=== PATIENT | female | born 1975 | race American Indian/Alaskan Native ===

== ENCOUNTER 2016-06-26 11:38 | Emergency (ER) | payer SELFPAY ==
--- NOTE | 2016-06-26 12:59 | XRay Report ---
CHEST TWO VIEWS: 06/26/16 11:38:00 CLINICAL: Productive cough. COMPARISON: None FINDINGS: Normal heart and pulmonary vasculature. The lungs are normally expanded and clear.Mild degenerative changes in the spine. IMPRESSION: No acute cardiopulmonary process.
[2016-06-26] MEDS ORDERED: DUONEB 0.5 MG-3 MG/3 ML SOLN IH ONE (15:31)
[2016-06-26] MEDS ORDERED: DELTASONE PO ONE (15:31)
[2016-06-26 17:05] VITALS: BP 153/95
--- NOTE | 2016-06-26 19:44 | Emergency Department Report ---
Entered by CORDELIA DAMON, acting as scribe for ZITA AGUILAR PA. - General Chief Complaint: Upper Respiratory Infection Stated Complaint: CHEST PAIN / BODY ACHE / FEVER /CHILLS Time Seen by Provider: 06/26/16 14:54 Source: patient Mode of arrival: Ambulatory Limitations: No Limitations - History of Present Illness Initial Comments: 41 year old female presents to the ED for evaluation of persistent dry cough and associated wheezing and body aches for 10 days. She also reports chest pain with cough, chills, audible wheezing and subjective fever this morning. Treatments prior to arrival include Tylenol, last dose at 10:00 this morning. Denies abdominal pain, nausea, vomiting. Endorses cigarette use. MD Complaint: fever, cough Onset/Timin -: days(s) Severity: moderate Consistency: constant Improves With: other (Tylenol) Worsens With: other (cold environments (works in "cold storage")) Associated Symptoms: fever, chills, myalgias, cough, chest pain (with cough), hoarseness. denies: sore throat, shortness of breath, abdominal pain, nausea, vomiting, diarrhea, rash Treatments Prior to Arrival: Acetaminophen (last dose at 10:00 this morning) - Related Data Previous Rx's Medication Instructions Recorded Last Taken Type Ferrous Sulfate [Feosol 325 MG tab] 325 mg PO TID #90 tablet 11/19/14 Unknown Rx HYDROcodone/APAP 5-325 [[place] 1 each PO Q6HR PRN #14 tablet 11/19/14 Unknown Rx 5-325 mg TAB] Pantoprazole [Protonix] 40 mg PO QDAY #30 tablet 11/19/14 Unknown Rx Sucralfate [Carafate] 1 gm PO Q6HR 30 Days 11/19/14 Unknown Rx Cephalexin [Keflex] 500 mg PO Q12HR #10 cap 02/03/16 Unknown Rx Ibuprofen [Motrin] 400 mg PO Q8H PRN #15 tablet 02/03/16 Unknown Rx Neomy/Baci/Polymyx Oint [Triple 15 gm TP BID #1 tube 02/03/16 Unknown Rx Antibiotic] traMADol [Ultram] 50 mg PO Q6HR PRN #20 tablet 02/08/16 Unknown Rx Albuterol Sulfate [Ventolin HFA] 2 puff IH Q4H PRN #1 hfa.aer.ad 04/15/17 Unknown Rx Azithromycin [Zithromax Z-AYO] 250 mg PO DAILY #6 tab 06/26/16 Unknown Rx Cetirizine HCl [ZyrTEC] 10 mg PO QDAY #14 capsule 06/26/16 Unknown Rx Fluticasone [Flonase] 1 spray NS QDAY #1 bottle 06/26/16 Unknown Rx guaiFENesin/CODEINE [Robitussin AC] 10 ml PO QHS PRN #70 oral.liqd 06/26/16 Unknown Rx Allergies Allergy/AdvReac Type Severity Reaction Status Date / Time No Known Allergies Allergy Verified 02/08/16 19:44 ED Review of Systems Comment: All other systems reviewed and negative Constitutional: chills, fever Eyes: denies: eye discharge ENT: congestion (chest congestion), other (horseness). denies: ear pain, throat pain, dental pain Respiratory: cough, wheezing. denies: shortness of breath, SOB with exertion, SOB at rest, stridor Cardiovascular: chest pain (with cough) Gastrointestinal: denies: abdominal pain, nausea, vomiting, diarrhea Musculoskeletal: myalgia. denies: back pain, arthralgia Skin: denies: rash Neurological: denies: headache, weakness, abnormal gait, vertigo ED Past Medical Hx - Past Medical History Previous Medical History?: Yes Additional medical history: Anemia. FIBROID TUMOR - Surgical History Past Surgical History?: Yes Hx Cholecystectomy: Yes - Family History Family history: no significant - Social History Smoking Status: Current Every Day Smoker Substance Use Type: Alcohol, Non Opiate Pain - Medications Home Medications: Home Medications Medication Instructions Recorded Confirmed Last Taken Type Ferrous Sulfate [Feosol 325 MG tab] 325 mg PO TID #90 tablet 11/19/14 Unknown Rx HYDROcodone/APAP 5-325 [[place] 1 each PO Q6HR PRN #14 tablet 11/19/14 Unknown Rx 5-325 mg TAB] Pantoprazole [Protonix] 40 mg PO QDAY #30 tablet 11/19/14 Unknown Rx Sucralfate [Carafate] 1 gm PO Q6HR 30 Days 11/19/14 Unknown Rx Cephalexin [Keflex] 500 mg PO Q12HR #10 cap 02/03/16 Unknown Rx Ibuprofen [Motrin] 400 mg PO Q8H PRN #15 tablet 02/03/16 Unknown Rx Neomy/Baci/Polymyx Oint [Triple 15 gm TP BID #1 tube 02/03/16 Unknown Rx Antibiotic] traMADol [Ultram] 50 mg PO Q6HR PRN #20 tablet 02/08/16 Unknown Rx Albuterol Sulfate [Ventolin HFA] 2 puff IH Q4H PRN #1 hfa.aer.ad 06/26/16 Unknown Rx Azithromycin [Zithromax Z-AYO] 250 mg PO DAILY #6 tab 06/26/16 Unknown Rx Cetirizine HCl [ZyrTEC] 10 mg PO QDAY #14 capsule 06/26/16 Unknown Rx Fluticasone [Flonase] 1 spray NS QDAY #1 bottle 06/26/16 Unknown Rx guaiFENesin/CODEINE [Robitussin AC] 10 ml PO QHS PRN #70 oral.liqd 06/26/16 Unknown Rx ED Physical Exam - General Limitations: No Limitations General appearance: alert, in no apparent distress - Head Head exam: Present: atraumatic, normocephalic - Eye Eye exam: Present: normal appearance, PERRL, EOMI. Absent: scleral icterus, conjunctival injection Pupils: Present: normal accommodation - ENT ENT exam: Present: normal orophraynx, mucous membranes moist, normal external ear exam (bilateral TMs congested without erythema), other (bilateral turbinates are swollen and erythematous. Positive frontal sinuses tender to palpate) - Expanded ENT Exam Expanded TM/Canal exam: Effusion: Right TM, Left TM Mouth exam: Present: normal external inspection. Absent: drooling Throat exam: Positive: normal inspection. Negative: tonsillar erythema, tonsillomegaly, tonsillar exudate, R peritonsillar mass, L peritonsillar mass - Neck Neck exam: Present: normal inspection. Absent: tenderness, meningismus, full ROM, lymphadenopathy, thyromegaly - Expanded Neck Exam Expanded Neck exam: Absent: tenderness, midline deformity, anterior neck swelling, tracheal deviation - Respiratory Respiratory exam: Present: wheezes (scattered in upper lung [place] bilaterally) . Absent: respiratory distress, rales, rhonchi, stridor, chest wall tenderness , accessory muscle use, decreased breath sounds - Cardiovascular Cardiovascular Exam: Present: regular rate, normal rhythm, normal heart sounds. Absent: systolic murmur, diastolic murmur, rubs, gallop - GI/Abdominal GI/Abdominal exam: Present: soft, normal bowel sounds. Absent: distended, tenderness, guarding, rebound, rigid - Extremities Exam Extremities exam: Present: normal inspection, full ROM, normal capillary refill. Absent: tenderness, pedal edema, other (clubbing, cyanosis, or edema) - Back Exam Back exam: Present: normal inspection, full ROM - Neurological Exam Neurological exam: Present: alert, oriented X3 - Psychiatric Psychiatric exam: Present: normal affect, normal mood - Skin Skin exam: Present: warm, dry, intact, normal color. Absent: rash, cyanosis ED Course Vital Signs 06/26/16 06/26/16 06/26/16 11:42 16:28 16:40 Temperature 98.1 F Pulse Rate 100 H Pulse Rate [ 102 H 103 H Bilateral Upper Lobe] Respiratory 20 Rate Respiratory 18 18 Rate [Bilateral Upper Lobe] Blood Pressure 151/93 Blood Pressure [Left] O2 Sat by Pulse 100 Oximetry 06/26/16 06/26/16 16:49 17:04 Temperature 98.2 F 97.7 F Pulse Rate 97 H 95 H Pulse Rate [ Bilateral Upper Lobe] Respiratory 18 16 Rate Respiratory Rate [Bilateral Upper Lobe] Blood Pressure Blood Pressure 153/95 [Left] O2 Sat by Pulse 100 100 Oximetry Vital Signs 06/26/16 06/26/16 06/26/16 11:42 16:28 16:40 Temperature 98.1 F Pulse Rate 100 H Pulse Rate [ 102 H 103 H Bilateral Upper Lobe] Respiratory 20 Rate Respiratory 18 18 Rate [Bilateral Upper Lobe] Blood Pressure 151/93 O2 Sat by Pulse 100 Oximetry 06/26/16 16:49 Temperature 98.2 F Pulse Rate 97 H Pulse Rate [ Bilateral Upper Lobe] Respiratory 18 Rate Respiratory Rate [Bilateral Upper Lobe] Blood Pressure O2 Sat by Pulse 100 Oximetry - Reevaluation(s) Reevaluation #1: 06/26/16 16:50 Patient received DuoNeb nebulizer treatment times one in emergency room along with Deltasone 60 mg by mouth. ED Medical Decision Making - Radiology Data Radiology results: report reviewed Chest x-ray revealed no acute cardiopulmonary processes - Medical Decision Making ED course: ED Disposition Clinical Impression: Cough Acute frontal sinusitis Qualifiers: Recurrence: recurrent Qualified Code(s): J01.11 - Acute recurrent frontal sinusitis Acute bronchitis Qualifiers: Bronchitis organism: unspecified organism Qualified Code(s): J20.9 - Acute bronchitis, unspecified Disposition: DISCHARGED TO HOME OR SELFCARE Is pt being admited?: No Does the pt Need Aspirin: No Condition: Stable Instructions: Sinusitis (ED), Acute Bronchitis (ED), Acute Cough (ED) Additional Instructions: Please flush nostrils out with saline nasal wash Take antibiotic as prescribed Take cough medicine at bedtime Prescriptions: guaiFENesin/CODEINE [Robitussin AC] 10 ml PO QHS PRN #70 oral.liqd PRN Reason: Cough Albuterol Sulfate [Ventolin HFA] 2 puff IH Q4H PRN #1 hfa.aer.ad PRN Reason: Cough and wheezing Azithromycin [Zithromax Z-AYO] 250 mg PO DAILY #6 tab Cetirizine HCl [ZyrTEC] 10 mg PO QDAY #14 capsule Fluticasone [Flonase] 1 spray NS QDAY #1 bottle Referrals: PRIMARY CARE, [Primary Care Provider] - 3-5 Days Forms: Accompanied Note, Work/School Release Form(ED) This documentation as recorded by the NELSON laughlin REBEKAH,accurately reflects the service I personally performed and the decisions made by ,ZITA AGUILAR PA.
== END 2016-06-26 17:07 | disposition home or self-care (01) ==
LOC: ED 11:38
DX: J20.9 Acute bronchitis, unspecified (principal); J01.11 Acute recurrent frontal sinusitis; F17.200 Nicotine dependence, unspecified, uncomplicated; Z90.49 Acquired absence of other specified parts of digestive tract
CPT/HCPCS: 71020; 94640; 99283; J7512

== ENCOUNTER 2017-02-05 14:07 | Inpatient (IN) | payer OTHER ==
[2017-02-05 16:08] LABS: Basophils % (Auto) 0.5 % (0.0-1.8); Eosinophils % (Auto) 1.3 % (0.0-4.3); Hemoglobin 6.2 gm/dl (10.1-14.3); Mean Corpuscular HGB Conc 30 % (30-34); Platelet Count 392 K/mm3 (140-440); Red Blood Count 3.42 M/mm3 (3.65-5.03); White Blood Count 5.6 K/mm3 (4.5-11.0)
[2017-02-05 16:16] LABS: Mean Corpuscular Hemoglobin 18 pg (28-32); Mean Corpuscular Volume 62 fl (79-97); Red Cell Distribution Width 23.1 % (13.2-15.2)
[2017-02-05 16:26] LABS: Alanine Aminotransferase 16 units/L (7-56); Albumin 4.4 g/dL (3.9-5); Albumin/Globulin Ratio 1.2 %; Alkaline Phosphatase 69 units/L (35-129); Anion Gap 18 mmol/L; BUN/Creatinine Ratio 8; Bilirubin,Total < 0.20 mg/dL (0.1-1.2); Blood Urea Nitrogen 5 mg/dL (7-17); Calcium 9.4 mg/dL (8.4-10.2); Carbon Dioxide 25 mmol/L (22-30); Chloride 100.4 mmol/L (98-107); Glucose 101 mg/dL (65-100); Lipase 46 units/L (13-60); Potassium 4.1 mmol/L (3.6-5.0); Sodium 139 mmol/L (137-145)
[2017-02-05 17:48] LABS: Bilirubin,Urine NEG (Negative); Blood,Urine MOD (Negative); Ketones,Urine NEG (Negative); Leukocyte Esterase,Urine NEG (Negative); Mucus,Urine FEW /HPF; Nitrite,Urine NEG (Negative); Protein,Urine <15 mg/dL mg/dL (Negative); Urobilinogen,Urine < 2.0 mg/dL (<2.0); WBC,Urine < 1.0 /HPF (0.0-6.0)
--- NOTE | 2017-02-05 22:35 | Cat Scan Report ---
FINAL REPORT EXAM: CT ABDOMEN PELVIS WO CON HISTORY: left flank pain,hematuria TECHNIQUE: Unenhanced stone protocol CT of the abdomen and pelvis at 2.5 millimeter axial increments. Coronal and sagittal reconstruction was also performed. PRIORS: None. FINDINGS: There is no evidence for renal calculi or hydronephrosis. No evidence for ureteral or bladder calculus is seen. No evidence for renal or bladder mass is noted. Otherwise, within the limits of a noncontrast exam, the liver, spleen, pancreas, and adrenal glands are unremarkable. Gallbladder has been surgically removed. No evidence for retroperitoneal or pelvic lymphadenopathy is seen. The bowel loops have normal caliber. No fluid collection, inflammatory change, or free air is seen within the abdomen or pelvis. The appendix is normal. Within the pelvis, the uterus is markedly enlarged and lobulated in contour suggesting underlying fibroid formation. The uterus extends cranially to the level of the umbilicus and measures at least 12.4 x 10.1 x 15.5 cm. Along the left side of the uterine fundus, there is a 3.6 x 4.0 cm focus (axial image 119). This may represent an enlarged left ovary versus an exophytic fibroid. No other entity is identified to suggest the left ovary elsewhere. Pelvic ultrasound is recommended. Images through the upper abdomen include the lung bases which are expanded and clear. Bony structures show no focal abnormalities. IMPRESSION: 1. No evidence for renal calculi or renal obstruction. 2. Markedly enlarged uterus extending to the level of the umbilicus. Findings are consistent with underlying fibroids 3.. Focus extending off the left side of the uterine fundus. I am uncertain whether this represents an enlarged left ovary or an exophytic fibroid. Pelvic ultrasound is warranted. 4. Cholecystectomy.
--- NOTE | 2017-02-05 22:40 | Emergency Department Report ---
ED Abdominal Pain HPI - General Chief Complaint: Abdominal Pain Stated Complaint: ABD PAIN/BACK PAIN Time Seen by Provider: 02/05/17 22:34 Source: patient Mode of arrival: Ambulatory Limitations: No Limitations - History of Present Illness Initial Comments: 41 yo female with increasing pain in her abdomen. She has a h/o uterine fibroid and was told by her doctor that she needed a hysterectomy but she refused. She is here with c/o increased p[ain and abnormal menstrual flow and wants a hysterectomy MD Complaint: abdominal pain -: year(s) (2yrs) Location: diffuse Radiation: none Migration to: no migration Severity scale (0 -10): 3 Quality: cramping, aching Consistency: intermittent Improves With: nothing Worsens With: nothing Associated Symptoms: other (heavy menstrual cycle) - Related Data Previous Rx's Medication Instructions Recorded Last Taken Type Ferrous Sulfate [Feosol 325 MG tab] 325 mg PO TID #90 tablet 11/19/14 Unknown Rx HYDROcodone/APAP 5-325 [[place] 1 each PO Q6HR PRN #14 tablet 11/19/14 Unknown Rx 5-325 mg TAB] Pantoprazole [Protonix] 40 mg PO QDAY #30 tablet 11/19/14 Unknown Rx Sucralfate [Carafate] 1 gm PO Q6HR 30 Days oral.liqd 11/19/14 Unknown Rx Cephalexin [Keflex] 500 mg PO Q12HR #10 cap 02/03/16 Unknown Rx Ibuprofen [Motrin] 400 mg PO Q8H PRN #15 tablet 02/03/16 Unknown Rx Neomy/Baci/Polymyx Oint [Triple 15 gm TP BID #1 tube 02/03/16 Unknown Rx Antibiotic] traMADol [Ultram] 50 mg PO Q6HR PRN #20 tablet 02/08/16 Unknown Rx Albuterol Sulfate [Ventolin HFA] 2 puff IH Q4H PRN #1 hfa.aer.ad 06/26/16 Unknown Rx Azithromycin [Zithromax Z-AYO] 250 mg PO DAILY #6 tab 06/26/16 Unknown Rx Cetirizine HCl [ZyrTEC] 10 mg PO QDAY #14 capsule 06/26/16 Unknown Rx Fluticasone [Flonase] 1 spray NS QDAY #1 bottle 06/26/16 Unknown Rx guaiFENesin/CODEINE [Robitussin AC] 10 ml PO QHS PRN #70 oral.liqd 06/26/16 Unknown Rx Allergies Allergy/AdvReac Type Severity Reaction Status Date / Time No Known Allergies Allergy Verified 02/08/16 19:44 ED Review of Systems ROS: Stated complaint: ABD PAIN/BACK PAIN Other details as noted in HPI Constitutional: denies: chills, fever Eyes: denies: eye pain, eye discharge, vision change ENT: denies: ear pain, throat pain Respiratory: denies: cough, shortness of breath, wheezing Cardiovascular: denies: chest pain, palpitations Endocrine: no symptoms reported Gastrointestinal: abdominal pain. denies: nausea, diarrhea Genitourinary: abnormal menses. denies: urgency, dysuria, discharge Musculoskeletal: denies: back pain, joint swelling, arthralgia Skin: denies: rash, lesions Neurological: denies: headache, weakness, paresthesias Psychiatric: denies: anxiety, depression Hematological/Lymphatic: denies: easy bleeding, easy bruising ED Past Medical Hx - Past Medical History Additional medical history: Anemia. FIBROID TUMOR - Surgical History Hx Cholecystectomy: Yes - Social History Smoking Status: Current Every Day Smoker Substance Use Type: None - Medications Home Medications: Home Medications Medication Instructions Recorded Confirmed Last Taken Type Ferrous Sulfate [Feosol 325 MG tab] 325 mg PO TID #90 tablet 11/19/14 Unknown Rx HYDROcodone/APAP 5-325 [[place] 1 each PO Q6HR PRN #14 tablet 11/19/14 Unknown Rx 5-325 mg TAB] Pantoprazole [Protonix] 40 mg PO QDAY #30 tablet 11/19/14 Unknown Rx Sucralfate [Carafate] 1 gm PO Q6HR 30 Days oral.liqd 11/19/14 Unknown Rx Cephalexin [Keflex] 500 mg PO Q12HR #10 cap 02/03/16 Unknown Rx Ibuprofen [Motrin] 400 mg PO Q8H PRN #15 tablet 02/03/16 Unknown Rx Neomy/Baci/Polymyx Oint [Triple 15 gm TP BID #1 tube 02/03/16 Unknown Rx Antibiotic] traMADol [Ultram] 50 mg PO Q6HR PRN #20 tablet 02/08/16 Unknown Rx Albuterol Sulfate [Ventolin HFA] 2 puff IH Q4H PRN #1 hfa.aer.ad 06/26/16 Unknown Rx Azithromycin [Zithromax Z-AYO] 250 mg PO DAILY #6 tab 06/26/16 Unknown Rx Cetirizine HCl [ZyrTEC] 10 mg PO QDAY #14 capsule 06/26/16 Unknown Rx Fluticasone [Flonase] 1 spray NS QDAY #1 bottle 06/26/16 Unknown Rx guaiFENesin/CODEINE [Robitussin AC] 10 ml PO QHS PRN #70 oral.liqd 06/26/16 Unknown Rx ED Physical Exam - General Limitations: No Limitations General appearance: alert, in no apparent distress - Head Head exam: Present: atraumatic, normocephalic - Eye Eye exam: Present: normal appearance, EOMI - ENT ENT exam: Present: mucous membranes moist - Neck Neck exam: Present: normal inspection - Respiratory Respiratory exam: Present: normal lung sounds bilaterally. Absent: respiratory distress, wheezes, rales - Cardiovascular Cardiovascular Exam: Present: regular rate, normal rhythm, normal heart sounds. Absent: systolic murmur, diastolic murmur, rubs, gallop - GI/Abdominal GI/Abdominal exam: Present: soft, tenderness (diffuse especially epigstric, mass felt just below the epigastrium at the umbilicus), normal bowel sounds. Absent: guarding, rebound - Rectal Rectal exam: Present: deferred - Extremities Exam Extremities exam: Present: normal inspection, full ROM - Back Exam Back exam: Present: normal inspection, full ROM - Neurological Exam Neurological exam: Present: alert, oriented X3, CN II-XII intact - Psychiatric Psychiatric exam: Present: normal affect, normal mood - Skin Skin exam: Present: warm, dry, intact, normal color. Absent: rash ED Course Vital Signs 02/05/17 02/05/17 02/05/17 15:16 21:25 22:29 Temperature 98.4 F 98.5 F 98.8 F Pulse Rate 89 88 98 H Respiratory 18 18 18 Rate Blood Pressure 142/89 150/95 Blood Pressure 142/90 [Left] O2 Sat by Pulse 100 100 98 Oximetry 02/06/17 02:40 Temperature Pulse Rate Respiratory 18 Rate Blood Pressure Blood Pressure [Left] O2 Sat by Pulse Oximetry ED Medical Decision Making - Lab Data Result diagrams: 02/05/17 15:48 02/05/17 15:48 - Radiology Data Radiology results: report reviewed (CT abd/pelvis:fibroid uterus, left ovarian abnormality ?fibroid US pelvic/abd: multiple uterine fibroids,fibroid in area of left ovary) Critical care attestation.: If time is entered above; I have spent that time in minutes in the direct care of this critically ill patient, excluding procedure time. ED Disposition Clinical Impression: Abdominal pain Qualifiers: Abdominal location: unspecified location Qualified Code(s): R10.9 - Unspecified abdominal pain Uterine fibroid Qualifiers: Uterine leiomyoma location: intramural, submucous, and subserous Qualified Code (s): D25.1 - Intramural leiomyoma of uterus; D25.0 - Submucous leiomyoma of uterus; D25.0 - Submucous leiomyoma of uterus; D25.2 - Subserosal leiomyoma of uterus; D25.2 - Subserosal leiomyoma of uterus Menorrhagia Qualifiers: Menorrahagia type: with irregular cycle Qualified Code(s): N92.1 - Excessive and frequent menstruation with irregular cycle Disposition: -09 OP ADMIT IP TO THIS HOSP Is pt being admited?: Yes Does the pt Need Aspirin: No Condition: Stable Instructions: Abdominal Pain (ED) Referrals: PRIMARY CARE, [Primary Care Provider] - 3-5 Days Time of Disposition: 03:06 (case reviewed with dr marc mendoza and she freda admit ehr to the hospital)
--- NOTE | 2017-02-06 00:47 | Ultrasound Report ---
FINAL REPORT EXAM: US PELVIC COMPLETE HISTORY: uterine fibroid? TECHNIQUE: Routine transabdominal imaging was obtained of the pelvis. The CT scan of the pelvis dated 02/05/2017 was reviewed for correlation. FINDINGS: The uterus is diffusely enlarged measuring 18.2 cm x 9.3 cm x 11.7 cm having a very heterogeneous myometrium. There are multiple fibroids in the body uterus measuring up to 6.5 cm in diameter in the lower body of uterus. The left adnexal mass seen on the CT scan represents a fibroid. The endometrium is not adequately seen for evaluation. Free fluid is not seen. The ovaries are normal in size contour and echotexture. The right ovary measures 3.7 cm x 2.4 cm x 2.7 cm. The left ovary measures 4 cm x 3.3 cm x 3.6 cm. IMPRESSION: Diffuse enlargement of the uterus containing multiple fibroids as described. The left adnexal mass seen on the CT scan represents 1 of those fibroids. Normal ovaries. No free fluid identified.
--- NOTE | 2017-02-06 00:49 | Ultrasound Report ---
FINAL REPORT EXAM: US TRANSVAGINAL HISTORY: uterine fibroid? TECHNIQUE: Transvaginal imaging was obtained of the pelvis. Correlation with the CT scan of the abdomen and pelvis dated 02/05/2017 was reviewed. FINDINGS: The uterus is diffusely enlarged measuring 18.2 cm x 9.3 cm x 11.7 cm and has a diffusely heterogeneous myometrium compatible with multiple fibroids. The fibroids measure up to 6.5 cm in diameter. One of these fibroids accounts for the left adnexal soft tissue fullness. The endometrium was not measured. Free fluid is not seen. The ovaries are normal size contour and echotexture. The right ovary measures 3.7 cm x 2.4 cm x 2.7 cm. The left ovary measures 4.0 cm x 3.3 cm x 3.6 cm. There are benign follicles in both ovaries. Free fluid is not seen. IMPRESSION: Enlarged fibroid uterus as described. Normal appearing ovaries. No evidence of free fluid.
[2017-02-06] MEDS ORDERED: PERCOCET 5/325 ONE (02:38)
[2017-02-06] MEDS ORDERED: PERCOCET 5/325 PO ONE (02:39)
--- NOTE | 2017-02-06 07:22 | Progress Note ---
Hospitalist Physical - Constitutional Vitals: Temp Pulse Resp BP Pulse Ox 98.8 F 98 H 18 142/90 98 02/05/17 22:29 02/05/17 22:29 02/06/17 02:40 02/05/17 22:29 02/05/17 22:29 Results - Labs CBC & Chem 7: 02/05/17 15:48 02/05/17 15:48 Labs: Laboratory Last Values WBC 5.6 K/mm3 (4.5-11.0) 02/05/17 15:48 RBC 3.42 M/mm3 (3.65-5.03) L 02/05/17 15:48 Hgb 6.2 gm/dl (10.1-14.3) L 02/05/17 15:48 Hct 21.0 % (30.3-42.9) L 02/05/17 15:48 MCV 62 fl (79-97) L 02/05/17 15:48 MCH 18 pg (28-32) L 02/05/17 15:48 MCHC 30 % (30-34) 02/05/17 15:48 RDW 23.1 % (13.2-15.2) H 02/05/17 15:48 Plt Count 392 K/mm3 (140-440) 02/05/17 15:48 Lymph % (Auto) 28.6 % (13.4-35.0) 02/05/17 15:48 [place] % (Auto) 8.8 % (0.0-7.3) H 02/05/17 15:48 Eos % (Auto) 1.3 % (0.0-4.3) 02/05/17 15:48 Baso % (Auto) 0.5 % (0.0-1.8) 02/05/17 15:48 Lymph # 1.6 K/mm3 (1.2-5.4) 02/05/17 15:48 [place] # 0.5 K/mm3 (0.0-0.8) 02/05/17 15:48 Eos # 0.1 K/mm3 (0.0-0.4) 02/05/17 15:48 Baso # 0.0 K/mm3 (0.0-0.1) 02/05/17 15:48 Seg Neutrophils % 60.8 % (40.0-70.0) 02/05/17 15:48 Seg Neutrophils # 3.4 K/mm3 (1.8-7.7) 02/05/17 15:48 Sodium 139 mmol/L (137-145) 02/05/17 15:48 Potassium 4.1 mmol/L (3.6-5.0) 02/05/17 15:48 Chloride 100.4 mmol/L (98-107) 02/05/17 15:48 Carbon Dioxide 25 mmol/L (22-30) 02/05/17 15:48 Anion Gap 18 mmol/L 02/05/17 15:48 BUN 5 mg/dL (7-17) L 02/05/17 15:48 Creatinine 0.6 mg/dL (0.7-1.2) L 02/05/17 15:48 Estimated GFR > 60 ml/min 02/05/17 15:48 BUN/Creatinine Ratio 8 % 02/05/17 15:48 Glucose 101 mg/dL (65-100) H 02/05/17 15:48 Calcium 9.4 mg/dL (8.4-10.2) 02/05/17 15:48 Total Bilirubin < 0.20 mg/dL (0.1-1.2) 02/05/17 15:48 AST 19 units/L (5-40) 02/05/17 15:48 ALT 16 units/L (7-56) 02/05/17 15:48 Alkaline Phosphatase 69 units/L (35-129) 02/05/17 15:48 Total Protein 8.0 g/dL (6.3-8.2) 02/05/17 15:48 Albumin 4.4 g/dL (3.9-5) 02/05/17 15:48 Albumin/Globulin Ratio 1.2 % 02/05/17 15:48 Lipase 46 units/L (13-60) 02/05/17 15:48 HCG, Qual Negative (Negative) 02/05/17 23:00 Urine Color Yellow (Yellow) 02/05/17 16:55 Urine Turbidity Clear (Clear) 02/05/17 16:55 Urine pH 5.0 (5.0-7.0) 02/05/17 16:55 Ur Specific [place] 1.017 (1.003-1.030) 02/05/17 16:55 Urine Protein <15 mg/dl mg/dL (Negative) 02/05/17 16:55 Urine Glucose (UA) Neg mg/dL (Negative) 02/05/17 16:55 Urine Ketones Neg mg/dL (Negative) 02/05/17 16:55 Urine Blood Mod (Negative) 02/05/17 16:55 Urine Nitrite Neg (Negative) 02/05/17 16:55 Urine Bilirubin Neg (Negative) 02/05/17 16:55 Urine Urobilinogen < 2.0 mg/dL (<2.0) 02/05/17 16:55 Ur Leukocyte Esterase Neg (Negative) 02/05/17 16:55 Urine WBC (Auto) < 1.0 /HPF (0.0-6.0) 02/05/17 16:55 Urine RBC (Auto) 25.0 /HPF (0.0-6.0) 02/05/17 16:55 U Epithel Cells (Auto) 1.0 /HPF (0-13.0) 02/05/17 16:55 Urine Mucus Few /HPF 02/05/17 16:55 Blood Type AB POSITIVE 02/05/17 17:16 Antibody Screen Negative 02/05/17 17:16
[2017-02-06] MEDS ORDERED: NACL 0.9% 500 ML 500 ML IV ONE ×2 (07:23→11:00)
--- NOTE | 2017-02-06 07:23 | History and Physical Report ---
History of Present Illness Date of examination: 02/06/17 Date of admission: 02/06/17 Chief complaint: Abdominal pain and abnormal vaginal bleeding History of present illness: 41-year-old obese female patient with significant past medical history of menorrhagia and fibroid uterus, evaluated by CASE MANAGEMENT ASSISTANT who recommended hysterectomy which patient refused, presented to the emergency room with abdominal pain and abnormal vaginal bleedingPatient was initially evaluated noted to be severely anemic with hemoglobin of 6.2 Denies nausea vomiting , denies chest pain or shortness of breath Past History Past Medical History: anemia, other (fibroid uterus) Past Surgical History: cholecystectomy Social history: lives with family, smoking (on pack per day for many years), full code. denies: alcohol abuse, prescription drug abuse Family history: hypertension Medications and Allergies Allergies Allergy/AdvReac Type Severity Reaction Status Date / Time No Known Allergies Allergy Verified 02/08/16 19:44 Home Medications Medication Instructions Recorded Confirmed Last Taken Type Ferrous Sulfate [Feosol 325 MG tab] 325 mg PO TID #90 tablet 11/19/14 Unknown Rx HYDROcodone/APAP 5-325 [[place] 1 each PO Q6HR PRN #14 tablet 11/19/14 Unknown Rx 5-325 mg TAB] Pantoprazole [Protonix] 40 mg PO QDAY #30 tablet 11/19/14 Unknown Rx Sucralfate [Carafate] 1 gm PO Q6HR 30 Days oral.liqd 11/19/14 Unknown Rx Cephalexin [Keflex] 500 mg PO Q12HR #10 cap 02/03/16 Unknown Rx Ibuprofen [Motrin] 400 mg PO Q8H PRN #15 tablet 02/03/16 Unknown Rx Neomy/Baci/Polymyx Oint [Triple 15 gm TP BID #1 tube 02/03/16 Unknown Rx Antibiotic] traMADol [Ultram] 50 mg PO Q6HR PRN #20 tablet 02/08/16 Unknown Rx Albuterol Sulfate [Ventolin HFA] 2 puff IH Q4H PRN #1 hfa.aer.ad 06/26/16 Unknown Rx Azithromycin [Zithromax Z-AYO] 250 mg PO DAILY #6 tab 06/26/16 Unknown Rx Cetirizine HCl [ZyrTEC] 10 mg PO QDAY #14 capsule 06/26/16 Unknown Rx Fluticasone [Flonase] 1 spray NS QDAY #1 bottle 06/26/16 Unknown Rx guaiFENesin/CODEINE [Robitussin AC] 10 ml PO QHS PRN #70 oral.liqd 06/26/16 Unknown Rx Review of Systems Constitutional: fatigue, weakness, no weight loss, no weight gain Ears, nose, mouth and throat: no nasal congestion, no nasal discharge Cardiovascular: decreased exercise tolerance, no chest pain, no orthopnea, no palpitations Respiratory: no cough with sputum, no shortness of breath Gastrointestinal: no abdominal pain, no nausea, no vomiting Genitourinary Female: menorrhagia Musculoskeletal: no myalgias, no arthritis Integumentary: no rash, no lesions Neurological: no weakness, no numbness, no tingling, no seizures Psychiatric: no anxiety, no depression Endocrine: no cold intolerance, no heat intolerance, no polydipsia, no polyuria Hematologic/Lymphatic: no easy bruising, no easy bleeding Allergic/Immunologic: no urticaria, no allergic rhinitis Exam - Constitutional Vitals: Temp Pulse Resp BP Pulse Ox 98.8 F 98 H 18 142/90 98 02/05/17 22:29 02/05/17 22:29 02/06/17 02:40 02/05/17 22:29 02/05/17 22:29 General appearance: Present: no acute distress, other (pallor) - EENT Eyes: Present: PERRL, EOM intact - Neck Neck: Present: supple, normal ROM - Respiratory Respiratory effort: normal Respiratory: negative: rales, rhonchi, wheezing - Cardiovascular Rhythm: regular Heart Sounds: Present: S1 & S2 - Extremities Extremities: no ischemia, No edema - Abdominal General gastrointestinal: Present: soft, non-tender, non-distended, normal bowel sounds - Integumentary Integumentary: Present: clear, pale - Musculoskeletal Musculoskeletal: strength equal bilaterally, generalized weakness - Psychiatric Psychiatric: appropriate mood/affect, cooperative - Neurologic Neurologic: CNII-XII intact, moves all extremities Results - Labs CBC & Chem 7: 02/05/17 15:48 02/05/17 15:48 Labs: Abnormal lab results 02/05/17 02/05/17 Range/Units 15:48 15:48 RBC 3.42 L (3.65-5.03) M/mm3 Hgb 6.2 L (10.1-14.3) gm/dl Hct 21.0 L (30.3-42.9) % MCV 62 L (79-97) fl MCH 18 L (28-32) pg RDW 23.1 H (13.2-15.2) % [place] % (Auto) 8.8 H (0.0-7.3) % BUN 5 L (7-17) mg/dL Creatinine 0.6 L (0.7-1.2) mg/dL Glucose 101 H (65-100) mg/dL Assessment and Plan --Acute on chronic blood loss anemia Secondary to menorrhagia due to fibroid uterus Type and cross, transfuse 2 units of PRBC, closely monitor H&H --Menorrhagia; CASE MANAGEMENT ASSISTANT evaluation, inpatient versus outpatient --Fibroid uterus; CASE MANAGEMENT ASSISTANT evaluation --Tobacco use; smoking cessation counseling done --DVT prophylaxis; SCD --Obesity; counseling done
[2017-02-06] MEDS ORDERED: PROAIR IH PRN (07:27)
[2017-02-06] MEDS ORDERED: PROVENTIL IH PRN (07:34)
[2017-02-06] MEDS: PROTONIX PO SCH (10:56)
[2017-02-06] MEDS: FLONASE NS SCH (11:43)
[2017-02-06] MEDS: ULTRAM PO PRN (14:00)
[2017-02-06] MEDS: FEOSOL PO SCH ×2 (14:00→21:11)
[2017-02-06] MEDS ORDERED: MILK OF MAGNESIA PO PRN (15:00)
[2017-02-07] MEDS: ULTRAM PO PRN (03:26)
[2017-02-07 06:54] LABS: Hematocrit 25.7 % (30.3-42.9); Mean Corpuscular HGB Conc 31 % (30-34); Platelet Count 382 K/mm3 (140-440); White Blood Count 8.1 K/mm3 (4.5-11.0)
[2017-02-07 06:59] LABS: Mean Corpuscular Hemoglobin 21 pg (28-32); Mean Corpuscular Volume 68 fl (79-97); Red Cell Distribution Width 27.7 % (13.2-15.2)
[2017-02-07] MEDS: FEOSOL PO SCH (08:27)
[2017-02-07] MEDS: PROTONIX PO SCH (08:27)
[2017-02-07] MEDS: FLONASE NS SCH (08:27)
[2017-02-07 09:00] LABS: Basophils % (Manual) 0 % (0.0-1.8); Blastocytes % (Manual) 0 %; Eosinophils % (Manual) 0 % (0.0-4.3)
[2017-02-07 09:01] LABS: Anisocytosis 3+; Hypochromasia 2+; Microcytosis 1+; Ovalocytes Few; Polychromasia Few
[2017-02-07 09:09] LABS: Diff Status Complete
--- NOTE | 2017-02-07 09:36 | Discharge Summary ---
Providers - Providers Date of Admission: 02/06/17 07:23 Date of discharge: 02/07/17 Attending physician: KELLI CASH Primary care physician: LIABILITY CLAIMS REPRESENTATIVE Hospitalization Reason for admission: abdominal pain/vaginal bleeding Condition: Stable Pertinent studies: Pelvic ultrasound Transvaginal ultrasound CT abdomen and pelvis Hospital course: 1-year-old female patient with a history of menorrhagia and fibroid uterus was admitted through emergency room with abdominal pain and vaginal bleeding evaluated and noted to have significant anemia, admitted and transfused 2 units PRBC H&H significantly improved, Patient advised to see private oil well driller for further evaluation of fibroid uterus and menorrhagia Smoking cessation counseling done advised to quit tobacco use Today she is comfortable with no complaints, vital signs are stable, physical examination is unremarkable Discharge diagnoses; --Acute on chronic blood loss anemia Secondary to menorrhagia due to fibroid uterus Type and cross, transfuse 2 units of PRBC, closely monitor H&H --Menorrhagia; PARADI TENDER evaluation, inpatient versus outpatient --Fibroid uterus; PARADI TENDER evaluation --Tobacco use; smoking cessation counseling done --Obesity; counseling done Disposition: DC-01 TO HOME OR SELFCARE Time spent for discharge: 32 min Core Measure Documentation - Palliative Care Palliative Care/ Comfort Measures: Not Applicable - Core Measures Any of the following diagnoses?: none Exam - Constitutional Vitals: Temp Pulse Resp BP Pulse Ox 98.6 F 83 20 137/79 100 02/07/17 08:04 02/07/17 08:04 02/07/17 08:04 02/07/17 08:04 02/07/17 08:04 General appearance: Present: no acute distress, well-nourished - EENT Eyes: Present: PERRL, EOM intact - Neck Neck: Present: supple, normal ROM - Respiratory Respiratory effort: normal Respiratory: negative: rales, rhonchi, wheezing - Cardiovascular Rhythm: regular Heart Sounds: Present: S1 & S2 - Extremities Extremities: no ischemia, No edema - Abdominal General gastrointestinal: Present: soft, non-tender, non-distended, normal bowel sounds - Integumentary Integumentary: Present: clear, warm - Musculoskeletal Musculoskeletal: strength equal bilaterally - Psychiatric Psychiatric: appropriate mood/affect, cooperative - Neurologic Neurologic: CNII-XII intact, moves all extremities Plan Activity: no restrictions Diet: regular Special Instructions: smoking cessation Additional Instructions: f/u private PARADI TENDER 1-2 weeks. If you notice severe vaginal bleeding ,contact PARADI TENDER or go to ED Follow up with: PRIMARY CARE, [Primary Care Provider] - 3-5 Days KWADWO SETH MD [Staff Physician] - 7 Days Prescriptions: Ferrous Sulfate [Feosol 325 MG tab] 325 mg PO TID #90 tablet
[2017-02-07 13:36] VITALS: BP 138/82
== END 2017-02-07 13:30 | disposition home or self-care (01) | DRG 760 ==
LOC: ED 14:07 → 3A 02-06 07:23
PROVIDERS: ADMIT Internal Medicine; ATTEND Internal Medicine
PROC: 30233N1 Transfusion of Nonautologous Red Blood Cells into Peripheral Vein, Percutaneous Approach (ICD-10-PCS; principal; 2017-02-06)
DX: N92.0 Excessive and frequent menstruation with regular cycle (principal); D62 Acute posthemorrhagic anemia; F17.200 Nicotine dependence, unspecified, uncomplicated; D25.9 Leiomyoma of uterus, unspecified; E66.9 Obesity, unspecified; Z71.3 Dietary counseling and surveillance; Z68.33 Body mass index [BMI] 33.0-33.9, adult; Z71.6 Tobacco abuse counseling; Z90.49 Acquired absence of other specified parts of digestive tract; Z82.49 Family history of ischemic heart disease and other diseases of the circulatory system
CPT/HCPCS: 36415; 74176; 76830; 76856; 80053; 81001; 83690; 84703; 85007; 85025; 86850; 86900; 86901; 93005; 93010; J2920; J7040

== ENCOUNTER 2017-07-06 13:00 | Inpatient (IN) | payer OTHER ==
--- NOTE | 2017-07-06 14:25 | Anesthesia Consultation ---
Anesthesia Consult and Med Hx Date of service: 07/12/17 - Airway Anesthetic Teeth Evaluation: Poor, Chipped ROM Head & Neck: Adequate Mental/Hyoid Distance: Adequate Mallampati Class: Class II Intubation Access Assessment: Probably Good - Pulmonary Exam CTA: Yes - Cardiac Exam Cardiac Exam: RRR - Pre-Operative Health Status ASA Pre-Surgery Classification: ASA2 Proposed Anesthetic Plan: General Nerve Block: TAP - Pulmonary Hx Smoking: Yes Hx Asthma: Yes (last used inhaler 03/2017) - Central Nervous System Hx Back Pain: Yes Hx Psychiatric Problems: No - Hematic Hx Anemia: Yes Hx Sickle Cell Disease: Yes (Trait only) - Other Systems Hx Alcohol Use: Yes (occas) Hx Cancer: No Hx Obesity: Yes - Additional Comments Anesthesia Medical History Comments: Left foot and hand numbness
[2017-07-06 14:37] LABS: Basophils % (Auto) 0.5 % (0.0-1.8); Eosinophils % (Auto) 0.8 % (0.0-4.3); Lymphocytes # (Auto) 1.1 K/mm3 (1.2-5.4); Lymphocytes % (Auto) 20.1 % (13.4-35.0); Mean Corpuscular HGB Conc 29 % (30-34); Monocytes # (Auto) 0.4 K/mm3 (0.0-0.8); Monocytes % (Auto) 7.5 % (0.0-7.3); Platelet Count 289 K/mm3 (140-440); Red Blood Count 3.88 M/mm3 (3.65-5.03)
[2017-07-06 14:38] LABS: Hematocrit 26.2 % (30.3-42.9); Hemoglobin 7.7 gm/dl (10.1-14.3); Mean Corpuscular Hemoglobin 20 pg (28-32); Mean Corpuscular Volume 68 fl (79-97); Red Cell Distribution Width 22.7 % (13.2-15.2)
[2017-07-12] MEDS ORDERED: NACL 0.9% 500 ML 500 ML IV SCH (06:00)
[2017-07-12] MEDS ORDERED: LACTATED RINGERS 1,000 ML IV SCH (06:00)
--- NOTE | 2017-07-12 09:45 | History and Physical Report ---
History of Present Illness Date of examination: 07/12/17 Date of admission: 07/12/17 09:25 Chief complaint: Symptomatic uterine fibroids History of present illness: Pt is a 41yo BF LMP 07/05/17 presents for surgical evaluation and treatment of uterine fibroids. She complains of pelvic pain and heavy prolonged vaginal bleeding causing her to be anemic, and was hospitalized for a blood transfusion. Pelvic u/s showed the uterus 18.2 x 9.3 x 11.7cm with multiple fibroids, and endometrial biopsy was benign. She is therefore scheduled for a Total Abdominal Hysterectomy with ovarian conservation. Past History Past Medical History: no pertinent history Past Surgical History: cholecystectomy, other (knee surgery) C D REACTOR OPERATOR History: fibroids Social history: no significant social history, single Medications and Allergies Allergies Allergy/AdvReac Type Severity Reaction Status Date / Time acetaminophen [From Percocet] Allergy rash, felt Verified 07/05/17 15:50 hot and itchy hydrocodone [From Effie] Allergy Rash, hot Verified 07/05/17 15:50 and itchy oxycodone [From Percocet] Allergy rash, felt Verified 07/05/17 15:50 hot and itchy Home Medications Medication Instructions Recorded Confirmed Last Taken Type Albuterol Sulfate [Ventolin HFA] 2 puff IH Q4H PRN #1 hfa.aer.ad 06/26/1607/08/17 Rx Fluticasone [Flonase] 1 spray NS QDAY #1 bottle 06/26/16 07/05/17 07/11/17 Rx Ferrous Sulfate [Feosol 325 MG tab] 325 mg PO TID #90 tablet 02/07/17 07/05/17 07/11/17 Rx Cyclobenzaprine [Flexeril] 10 mg PO TID PRN 07/05/17 07/05/17 07/11/17 History Docusate Sodium [Colace] 100 mg PO BID PRN 07/05/17 07/05/17 07/11/17 History Active Meds: Active Medications Sodium Chloride (Nacl 0.9% 500 Ml) 500 mls @ 0 mls/hr IV ONCE MOOKIE Lactated Ringer's (Lactated Ringers) 1,000 mls @ 100 mls/hr IV DIRECT MOOKIE Review of Systems All systems: negative - Vital Signs Vital signs: Vital Signs Temp Pulse Resp BP 98.8 F 84 18 128/80 07/06/17 14:00 07/06/17 14:00 07/06/17 14:00 07/06/17 14:00 Temp Pulse Resp BP Pulse Ox 98.8 F 84 18 128/80 07/06/17 14:00 07/06/17 14:00 07/06/17 14:00 07/06/17 14:00 - Physical Exam Breasts: Positive: deferred Cardiovascular: Regular rate Lungs: Positive: Clear to auscultation Abdomen: Positive: normal appearance Genitourinary (Female): Positive: normal external genitalia Vagina: Positive: normal moisture Uterus: Positive: enlarged Extremities: Positive: normal Results Result Diagrams: 07/06/17 14:10 All other labs normal. Ultrasound: report reviewed CT scan - pelvis: report reviewed Assessment and Plan - Patient Problems (1) Anemia Onset Date: 07/12/17 Current Visit: No Status: Acute Qualifiers: Iron deficiency anemia type: chronic blood loss Qualified Code(s): D50.0 - Iron deficiency anemia secondary to blood loss (chronic) (2) Menorrhagia Onset Date: 07/12/17 Current Visit: No Status: Acute Qualifiers: Menorrahagia type: with irregular cycle Qualified Code(s): N92.1 - Excessive and frequent menstruation with irregular cycle (3) Uterine fibroid Onset Date: 07/12/17 Current Visit: No Status: Acute Qualifiers: Uterine leiomyoma location: intramural, submucous, and subserous Qualified Code(s): D25.1 - Intramural leiomyoma of uterus; D25.0 - Submucous leiomyoma of uterus; D25.2 - Subserosal leiomyoma of uterus Plan to address problem: A: Symptomatic uterine fibroids Menorrhagia Chronic blood loss anemia P: Admit for a Total Abdominal Hysterectomy with Bilateral Salpingectomy Will proceed with a blood transfusion prior to surgery
[2017-07-12] MEDS ORDERED: ANCEF/STERILE WATER 2 GM/20 ML 2 GM/20 ML SYRINGE IV SCH (10:00)
[2017-07-12] MEDS ORDERED: NACL BACTERIOSTATIC INFILTRATI ONE (10:54)
[2017-07-12] MEDS ORDERED: NACL 0.9% 1000 ML 1,000 ML IV SCH (11:00)
[2017-07-12] MEDS ORDERED: SUBLIMAZE IV NR ×2 (12:01→13:00)
[2017-07-12] MEDS ORDERED: NEURONTIN PO NR (12:30)
[2017-07-12] MEDS ORDERED: PEPCID PO NR (12:30)
[2017-07-12] MEDS ORDERED: MARCAINE-EPI 0.5%-1:200,000 INFILTRATI ONE (12:49)
[2017-07-12] MEDS ORDERED: DECADRON ONE ×2 (12:49→14:40)
[2017-07-12] MEDS ORDERED: VERSED IV NR (13:00)
[2017-07-12] MEDS ORDERED: DIPRIVAN 10 MG/ML IV ONE (13:08)
[2017-07-12] MEDS ORDERED: DILAUDID ONE ×2 (13:09→15:47)
[2017-07-12] MEDS ORDERED: XYLOCAINE MPF 2% ONE (13:09)
[2017-07-12] MEDS ORDERED: ZEMURON IV ONE (13:09)
[2017-07-12] MEDS ORDERED: NACL 0.9% 1000 ML 1,000 ML ONE (13:37)
[2017-07-12] MEDS ORDERED: ACD-A 500 ML IV ONE (13:51)
[2017-07-12] MEDS ORDERED: NEO SYNEPHRINE/NS Syringe(OR USE) IV ONE (14:19)
[2017-07-12] MEDS ORDERED: ZOFRAN ONE (14:39)
[2017-07-12] MEDS ORDERED: NACL 0.9% IR ONE (15:17)
[2017-07-12] MEDS ORDERED: SODIUM CHLORIDE FLUSH SYRINGE 10 ML IV PRN (15:41)
[2017-07-12] MEDS ORDERED: ZOFRAN IV PRN (15:41)
[2017-07-12] MEDS ORDERED: MOTRIN PO PRN (15:41)
[2017-07-12] MEDS ORDERED: NARCAN 0.4 MG/1 ML IV PRN (15:41)
[2017-07-12] MEDS ORDERED: MILK OF MAGNESIA PO PRN (15:41)
[2017-07-12] MEDS ORDERED: ANCEF/NS 1 GM/50 ML 1 GM/50 ML BAG IV SCH (16:00)
--- NOTE | 2017-07-12 16:19 | Operative Report ---
Operative Report Operative Report: Date of procedure: 07/12/2017 Pre-operative diagnosis: 1. Symptomatic uterine fibroids 2. Menorrhagia 3. Chronic blood loss anemia Post-operative diagnosis: Same Procedure name(s): Total abdominal hysterectomy with bilateral salpingectomy Surgeon: Miguel Mead MD Medication Tech: Pastora Anesthesia: PAOLO block followed by general endotracheal intubation by Dr. Mariscal EBL: 400 mL's with 125 mL's returned by Cell Saver Findings: An 18-20 week size multi-myomatous uterus with a large cervical fibroid. Normal tubes and ovaries bilaterally. Normal appendix. Procedure: After the patient was first correctly identified and after general anesthesia was administered she was prepped and draped in usual in the usual sterile fashion and placed in the dorsolithotomy position. The skin knife was used to make a transverse skin incision. The incision was extended down to the layer of the fascia which was nicked in the midline and extended laterally using Bovie cautery. The rectus muscles were dissected off the rectus fascia both superiorly and inferiorly, the rectus bellies in the midline and the peritoneum was entered under direct visualization. Exploration of the pelvic organs found the uterus to be enlarged extending up to the umbilicus and the tubes and ovaries were normal bilaterally. Next the bowels were packed back and the right round ligament was clamped, cauterized and cut using the Enseal device. The right utero-ovarian ligaments was clamped, cauterized and cut, thus freeing the right ovary from the right uterine sidewall. The same procedure was performed on the left. The left round ligament was clamped, cauterized and cut, and the left utero-ovarian ligaments was clamped, cauterized and cut thus freeing the left ovary from the left uterine sidewall. A large cervical fibroid was blocking the uterine vessels so it was removed using both sharp and blunt dissection. The uterine vessels were then skeletonized bilaterally, and the bladder flap was taken down anteriorly. The uterine vessels were then clamped, cauterized and cut bilaterally, and the uterus was then amputated from the cervix and handed off the surgical field. The cardinal ligaments were sequentially clamped, cauterized and cut down to the level of the uterosacral ligaments. The cervix was then amputated from the vaginal cuff and the specimen was handed off the surgical field. The vaginal cuff was then made hemostatic using several sutures of 0 Vicryl suture in a [id number] configuration. After excellent hemostasis was assured copious amounts of irrigation was then performed. The Tisseel sealant was then sprayed across the vaginal cuff and the ovarian pedicles bilaterally and after excellent hemostasis was assured the procedure was considered complete. All instruments removed from abdomen, and the peritoneum was closed using 0 Vicryl suture in a running interlocking fashion and the rectus muscles were also loosely re-approximated using 0 Vicryl suture in a [id number] configuration. The fascia was then re-approximated using #1 Vicryl suture in a running interlocking fashion, the subcutaneous layer made hemostatic using Bovie cautery and the skin edges reapproximated using 4-0 Vicryl suture in a sub -cuticular fashion. Patient tolerated the procedure well was transported to recovery room in stable condition.
[2017-07-12] MEDS ORDERED: DILAUDID IV PRN (16:38)
[2017-07-12] MEDS: TORADOL IV SCH (18:12)
[2017-07-12] MEDS: D5LR 1,000 ML IV SCH (18:12)
[2017-07-12] MEDS: MORPHINE IV PRN (21:23)
[2017-07-12] MEDS ORDERED: PROVENTIL IH PRN (21:31)
[2017-07-12] MEDS: COLACE PO SCH (22:40)
[2017-07-12] MEDS: ceFAZolin 1 GM in NACL 0.9% 20 ML IV SCH (22:40)
[2017-07-13] MEDS: TORADOL IV SCH ×4 (01:03→23:50)
[2017-07-13] MEDS: D5LR 1,000 ML IV SCH ×3 (01:31→17:06)
[2017-07-13] MEDS: MORPHINE IV PRN ×2 (01:34→18:36)
[2017-07-13] MEDS: ceFAZolin 1 GM in NACL 0.9% 20 ML IV SCH (04:30)
[2017-07-13 05:16] LABS: Hematocrit 28.8 % (30.3-42.9); Hemoglobin 8.6 gm/dl (10.1-14.3)
--- NOTE | 2017-07-13 08:28 | Progress Note ---
Assessment and Plan - Patient Problems (1) Anemia Onset Date: 07/12/17 Current Visit: No Status: Chronic Qualifiers: Iron deficiency anemia type: chronic blood loss Qualified Code(s): D50.0 - Iron deficiency anemia secondary to blood loss (chronic) (2) Menorrhagia Onset Date: 07/12/17 Current Visit: No Status: Resolved Qualifiers: Menorrahagia type: with irregular cycle Qualified Code(s): N92.1 - Excessive and frequent menstruation with irregular cycle (3) Uterine fibroid Onset Date: 07/12/17 Current Visit: No Status: Resolved Qualifiers: Uterine leiomyoma location: intramural, submucous, and subserous Qualified Code(s): D25.1 - Intramural leiomyoma of uterus; D25.0 - Submucous leiomyoma of uterus; D25.2 - Subserosal leiomyoma of uterus (4) S/P ERICKA (total abdominal hysterectomy) Onset Date: 07/13/17 Current Visit: Yes Status: Acute Plan to address problem: A: S/P ERICKA - POD #1 Doing well Asymptomatic anemia - stable P: Continue RPOC Anticipate discharge in 24-48hrs Subjective - Subjective Date of service: 07/13/17 Principal diagnosis: s/p ERICKA - POD #1 Interval history: Pt is s/p a Total Abdominal Hysterectomy with Bilateral salpingectomy and feeling well. She is tolerating a liquid diet without nausea or vomiting. Patient reports: appetite normal, voiding normally, pain well controlled, flatus , ambulating normally Objective - Vital Signs Latest vital signs: Vital Signs Temp Pulse Resp BP BP Pulse Ox 07/13/17 05:57 20 07/13/17 05:27 20 07/13/17 04:54 98.8 F 91 H 20 157/93 97 07/13/17 01:34 20 07/13/17 01:03 20 07/13/17 00:17 98.7 F 98 H 18 147/85 93 07/12/17 22:45 20 07/12/17 21:53 20 07/12/17 21:23 20 07/12/17 20:54 98.4 F 101 H 18 166/102 97 07/12/17 20:45 98 07/12/17 17:10 97.6 F 89 16 147/90 100 07/12/17 16:30 93 H 19 152/92 98 07/12/17 16:15 92 H 24 144/89 96 07/12/17 16:10 86 24 139/84 99 07/12/17 16:05 90 25 H 142/90 98 07/12/17 16:00 94 H 11 L 128/67 92 07/12/17 15:54 97.8 F 94 H 26 H 137/85 94 07/12/17 13:10 80 28 H 117/79 100 07/12/17 13:05 83 26 H 123/84 100 07/12/17 13:00 97.8 F 86 26 H 117/79 100 07/12/17 12:55 83 9 L 136/82 100 07/12/17 12:50 78 24 130/87 100 07/12/17 12:30 98.1 F 80 27 H 127/86 07/12/17 12:15 98.2 F 92 H 26 H 127/80 07/12/17 10:30 97.8 F 88 18 132/88 99 07/12/17 10:20 97.8 F 82 18 132/88 99 Intake and Output 07/12/17 07/13/17 07/13/17 22:59 06:59 14:59 Intake Total 600 1034.583 Output Total 1600 1100 Balance -1000 -65.417 Intake: IV 600 914.583 D5lr 1,000 ml @ 125 mls/ 914.583 hr IV DIRECT MOOKIE Rx#: [id number] Oral 120 Output: Urine 1600 1100 Indwelling Catheter 800 1100 Other: Total, Intake Amount 120 Total, Output Amount 800 1100 Voiding Method Indwelling Catheter Weight 89.811 kg - Exam Breasts: Present: deferred Cardiovascular: Present: Regular rate Lungs: Present: Clear to auscultation Abdomen: Present: normal appearance, soft Extremities: Present: normal Incision: Present: normal, dry, intact, dressed - Labs Labs: Abnormal lab results 07/12/17 07/13/17 Range/Units 10:55 04:47 Hgb 8.6 L (10.1-14.3) gm/dl Hct 28.8 L (30.3-42.9) % Crossmatch See Detail Laboratory Tests 07/06/17 07/06/17 07/12/17 14:10 14:10 10:55 WBC 5.6 RBC 3.88 Hgb 7.7 L Hct 26.2 L MCV 68 L MCH 20 L MCHC 29 L RDW 22.7 H Plt Count 289 Lymph % (Auto) 20.1 [place] % (Auto) 7.5 H Eos % (Auto) 0.8 Baso % (Auto) 0.5 Lymph # 1.1 L [place] # 0.4 Eos # 0.0 Baso # 0.0 Seg Neutrophils % 71.1 H Seg Neutrophils # 4.0 HCG, Qual Negative Blood Type AB POSITIVE Antibody Screen Negative Crossmatch See Detail 07/13/17 04:47 WBC RBC Hgb 8.6 L Hct 28.8 L MCV MCH MCHC RDW Plt Count Lymph % (Auto) [place] % (Auto) Eos % (Auto) Baso % (Auto) Lymph # [place] # Eos # Baso # Seg Neutrophils % Seg Neutrophils # HCG, Qual Blood Type Antibody Screen Crossmatch
[2017-07-13] MEDS: COLACE PO SCH ×2 (09:44→23:50)
[2017-07-14] MEDS: D5LR 1,000 ML IV SCH (04:00)
[2017-07-14] MEDS: MORPHINE IV PRN (04:03)
[2017-07-14] MEDS: TORADOL IV SCH (06:18)
--- NOTE | 2017-07-14 09:15 | Progress Note ---
Assessment and Plan - Patient Problems (1) Anemia Onset Date: 07/12/17 Current Visit: No Status: Chronic Qualifiers: Iron deficiency anemia type: chronic blood loss Qualified Code(s): D50.0 - Iron deficiency anemia secondary to blood loss (chronic) (2) Menorrhagia Onset Date: 07/12/17 Current Visit: No Status: Resolved Qualifiers: Menorrahagia type: with irregular cycle Qualified Code(s): N92.1 - Excessive and frequent menstruation with irregular cycle (3) Uterine fibroid Onset Date: 07/12/17 Current Visit: No Status: Resolved Qualifiers: Uterine leiomyoma location: intramural, submucous, and subserous Qualified Code(s): D25.1 - Intramural leiomyoma of uterus; D25.0 - Submucous leiomyoma of uterus; D25.2 - Subserosal leiomyoma of uterus (4) S/P ERICKA (total abdominal hysterectomy) Onset Date: 07/13/17 Current Visit: Yes Status: Acute Plan to address problem: A: S/P ERICKA - POD #2 Doing well Asymptomatic anemia - stable Hypertension P: Continue RPOC Begin Procardia XL Anticipate discharge tomorrow Subjective - Subjective Date of service: 07/14/17 Principal diagnosis: s/p ERICKA - POD #2 Interval history: Pt is s/p a Total Abdominal Hysterectomy with Bilateral salpingectomy and feeling well. She is tolerating a reg diet without nausea or vomiting, ambulating and voiding without difficulty. However pain is not controlled. Patient reports: appetite normal, voiding normally, flatus, pain poorly controlled, ambulating normally, no nauseated Objective - Vital Signs Latest vital signs: Vital Signs Temp Pulse Resp Resp BP BP Pulse Ox 07/14/17 04:04 98.6 F 86 18 162/88 98 07/14/17 00:21 89 18 157/85 95 07/13/17 21:20 98.5 F 90 18 142/69 07/13/17 19:06 20 07/13/17 18:36 20 07/13/17 16:37 98.9 F 92 H 20 128/68 99 07/13/17 13:13 18 07/13/17 12:45 20 07/13/17 12:43 20 07/13/17 11:27 98.3 F 93 H 20 122/73 99 Intake and Output 07/13/17 07/14/17 07/14/17 22:59 06:59 14:59 Intake Total 1152.5 1360 Output Total 500 Balance 652.5 1360 Intake: IV 912.5 1000 D5lr 1,000 ml @ 125 mls/ 912.5 1000 hr IV DIRECT MOOKIE Rx#: [id number] Oral 240 Intake, Free Water 360 Output: Urine 500 Void 500 Other: Total, Intake Amount 240 Total, Output Amount 500 # Voids Void 2 - Exam Breasts: Present: deferred Cardiovascular: Present: Regular rate Lungs: Present: Clear to auscultation Abdomen: Present: normal appearance, soft Extremities: Present: normal Incision: Present: normal, dry, intact
[2017-07-14] MEDS: NEURONTIN PO SCH ×2 (09:54→21:44)
[2017-07-14] MEDS: PROCARDIA XL PO SCH (09:55)
[2017-07-14] MEDS: COLACE PO SCH ×2 (09:56→21:44)
[2017-07-14] MEDS: TORADOL PO PRN ×2 (17:10→22:56)
[2017-07-15] MEDS: TORADOL IV SCH (00:32)
[2017-07-15] MEDS: TORADOL PO PRN (05:54)
--- NOTE | 2017-07-15 08:26 | Progress Note ---
Assessment and Plan - Patient Problems (1) Anemia Onset Date: 07/12/17 Current Visit: No Status: Chronic Qualifiers: Iron deficiency anemia type: chronic blood loss Qualified Code(s): D50.0 - Iron deficiency anemia secondary to blood loss (chronic) (2) Menorrhagia Onset Date: 07/12/17 Current Visit: No Status: Resolved Qualifiers: Menorrahagia type: with irregular cycle Qualified Code(s): N92.1 - Excessive and frequent menstruation with irregular cycle (3) Uterine fibroid Onset Date: 07/12/17 Current Visit: No Status: Resolved Qualifiers: Uterine leiomyoma location: intramural, submucous, and subserous Qualified Code(s): D25.1 - Intramural leiomyoma of uterus; D25.0 - Submucous leiomyoma of uterus; D25.2 - Subserosal leiomyoma of uterus (4) S/P ERICKA (total abdominal hysterectomy) Onset Date: 07/13/17 Current Visit: Yes Status: Acute Plan to address problem: A: S/P ERICKA - POD #3 Doing well Asymptomatic anemia - stable Hypertension P: May go home today. Subjective - Subjective Date of service: 07/15/17 Principal diagnosis: s/p ERICKA - POD #3 Interval history: Pt is s/p a Total Abdominal Hysterectomy with Bilateral salpingectomy and feeling well. She is tolerating a reg diet without nausea or vomiting, ambulating and voiding without difficulty. Patient reports: appetite normal, voiding normally, pain well controlled, flatus , ambulating normally, no dizzy ambulation Objective - Vital Signs Latest vital signs: Vital Signs Temp Pulse Resp BP BP Pulse Ox 07/15/17 05:54 18 07/15/17 04:55 98.6 F 86 18 131/79 07/15/17 01:25 98.7 F 89 18 139/82 07/14/17 23:26 18 07/14/17 22:56 18 07/14/17 21:10 98.3 F 87 18 137/83 07/14/17 17:10 20 07/14/17 16:28 98.8 F 92 H 24 124/75 96 07/14/17 12:19 98.1 F 92 H 28 H 140/84 96 07/14/17 08:53 97.8 F 83 22 149/90 99 Intake and Output 07/14/17 07/15/17 07/15/17 22:59 06:59 14:59 Intake Total 360 360 Output Total 1700 Balance -1340 360 Intake: Oral 240 Intake, Free Water 120 360 Output: Urine 1700 Void 1700 Other: Total, Intake Amount 240 Total, Output Amount 800 # Voids Void 2 - Exam Breasts: Present: deferred Cardiovascular: Present: Regular rate Lungs: Present: Clear to auscultation Abdomen: Present: normal appearance Extremities: Present: normal Incision: Present: normal, dry, intact
--- NOTE | 2017-07-15 08:48 | Discharge Summary ---
Providers - Providers Date of Admission: 07/12/17 09:25 Date of discharge: 07/15/17 Attending physician: KWADWO SETH Primary care physician: ONELIA COLINDRES NP Hospitalization Reason for admission: other (symptomatic uterine fibroids; Menorrhagia) Procedure: other (Total Abdominal Hysterectomy) Episiotomy: none Incision: normal, dry, intact Other procedures: none complications: none Discharge diagnosis: other (s/p ERICKA) Hospital course: Pt is a 41yo BF LMP 07/05/17 who presented for surgical evaluation and treatment of uterine fibroids. She complained of pelvic pain and heavy prolonged vaginal bleeding causing her to be anemic, and was hospitalized for a blood transfusion. Pelvic u/s showed the uterus 18.2 x 9.3 x 11.7cm with multiple fibroids, and endometrial biopsy was benign. She underwent an uncomplicated Total Abdominal Hysterectomy with Bilateral Salpingectomy, and by POD #2 she was tolerating a reg diet without nausea or vomiting, ambulating and voiding without difficulty. However her BP's were elevated, and she was placed on Procardia XL 30mg QD which has presently controlled her BP's. She will therefore be discharged today on POD #3 in stable condition. Condition at discharge: Good Disposition: DC-01 TO HOME OR SELFCARE - Discharge Diagnoses (1) Anemia Status: Chronic Qualifiers: Iron deficiency anemia type: chronic blood loss Qualified Code(s): D50.0 - Iron deficiency anemia secondary to blood loss (chronic) (2) Menorrhagia Status: Resolved Qualifiers: Menorrahagia type: with irregular cycle Qualified Code(s): N92.1 - Excessive and frequent menstruation with irregular cycle (3) Uterine fibroid Status: Resolved Qualifiers: Uterine leiomyoma location: intramural, submucous, and subserous Qualified Code(s): D25.1 - Intramural leiomyoma of uterus; D25.0 - Submucous leiomyoma of uterus; D25.2 - Subserosal leiomyoma of uterus (4) S/P ERICKA (total abdominal hysterectomy) Status: Acute Plan - Discharge Medications Prescriptions: Gabapentin [Neurontin] 300 mg PO BID #60 capsule Ketorolac [Toradol] 10 mg PO Q6H PRN #30 tablet PRN Reason: Pain, Mild (1-3) NIFEdipine XL [Procardia Xl] 30 mg PO QDAY #30 tablet - Provider Discharge Summary Activity: routine, no sex for 6 weeks, no heavy lifting 4 weeks, no strenuous exercise Diet: routine Instructions: routine Additional instructions: [] Smoking cessation referral if applicable(refer to patient education folder for contact #) [] Refer to [facility]'s [facility] Booklet Call your doctor immediately for: * Fever > 100.5 * Heavy vaginal bleeding ( >1 pad per hour) * Severe persistent headache * Shortness of breath * Reddened, hot, painful area to leg or breast * Drainage or odor from incision. * Keep incision clean and dry at all times and follow doctor's instructions regarding bathing/showering - Follow up plan Follow up: ONELIA COLINDRES NP [Primary Care Provider] - 7 Days KWADWO SETH MD [Staff Physician] - 14 Days
[2017-07-15] MEDS: PROCARDIA XL PO SCH (09:53)
[2017-07-15] MEDS: NEURONTIN PO SCH (10:02)
[2017-07-15] MEDS: MORPHINE IV PRN (10:02)
[2017-07-15 11:05] VITALS: BP 130/80
== END 2017-07-15 11:30 | disposition home or self-care (01) | DRG 743 ==
LOC: 3A 07-12 09:25 → 2B-ACE 07-12 16:48 → OB 07-12 16:49
PROVIDERS: ADMIT Obstetrics & Gynecology; ATTEND Obstetrics & Gynecology
PROC: 0UT90ZZ Resection of Uterus, Open Approach (ICD-10-PCS; principal; 2017-07-12)
DX: D25.9 Leiomyoma of uterus, unspecified (principal); N92.0 Excessive and frequent menstruation with regular cycle; D50.0 Iron deficiency anemia secondary to blood loss (chronic); I10 Essential (primary) hypertension; E66.9 Obesity, unspecified; Z90.49 Acquired absence of other specified parts of digestive tract; Z88.5 Allergy status to narcotic agent; Z72.89 Other problems related to lifestyle; Z68.32 Body mass index [BMI] 32.0-32.9, adult
CPT/HCPCS: 36415; 64450; 81025; 84703; 85014; 85018; 85025; 86850; 86900; 86901; 86920; 88307; C9250; J0690; J1100; J1170; J1885; J2250; J2270; J2370; J2405; J2704; J3010; J7030; J7040; J7120; J7121; P9016

== ENCOUNTER 2018-03-30 13:32 | Emergency (ER) | payer SELFPAY ==
--- NOTE | 2018-03-30 14:09 | Emergency Department Report ---
Minor Respiratory - HPI Chief Complaint: Upper Respiratory Infection Stated Complaint: VOMIT/THROAT CLOSING/SOB Time Seen by Provider: 03/30/18 14:02 Duration: approx 1 week Severity: moderate Minor Respiratory: Yes Rhinorrhea, Yes Sore Throat, Yes Cough, Yes Fever, No Able to Tolerate Fluids, No Ear Pain, No Sick Contacts, No Hemoptysis, No Chest Pain, No Shortness of Breath Other History: Agents also states she has some mild body aches as well. Patient states pain when she swallows 8 out of 10 severity. Cough is nonproductive. ED Review of Systems ROS: Stated complaint: VOMIT/THROAT CLOSING/SOB Other details as noted in HPI Comment: All other systems reviewed and negative ED Past Medical Hx - Past Medical History Previous Medical History?: Yes Hx Hypertension: Yes Hx Congestive Heart Failure: No Hx Diabetes: No Hx Sickle Cell Disease: Yes (Trait only) Hx Headaches / Migraines: Yes (past hx migraines) Hx Asthma: Yes (last used inhaler 03/2017) Hx COPD: No Hx HIV: No Additional medical history: Anemia. FIBROID TUMOR - Surgical History Past Surgical History?: Yes Hx Cholecystectomy: Yes Additional Surgical History: fibroid tumors, hysterectomy - Social History Smoking Status: Current Every Day Smoker Substance Use Type: Alcohol - Medications Home Medications: Home Medications Medication Instructions Recorded Confirmed Last Taken Type Albuterol Sulfate [Ventolin HFA] 2 puff IH Q4H PRN #1 hfa.aer.ad 06/26/16 07/12/17 07/08/17 Rx Fluticasone [Flonase] 1 spray NS QDAY #1 bottle 06/26/16 07/05/17 07/11/17 Rx Ferrous Sulfate [Feosol 325 MG tab] 325 mg PO TID #90 tablet 02/07/17 07/05/17 07/11/17 Rx Cyclobenzaprine [Flexeril] 10 mg PO TID PRN 07/05/17 07/05/17 07/11/17 History Docusate Sodium [Colace] 100 mg PO BID PRN 07/05/17 07/05/17 07/11/17 History Gabapentin [Neurontin] 300 mg PO BID #60 capsule 07/15/17 Unknown Rx Ketorolac [Toradol] 10 mg PO Q6H PRN #30 tablet 07/15/17 Unknown Rx NIFEdipine XL [Procardia Xl] 30 mg PO QDAY #30 tablet 07/15/17 Unknown Rx ALBUTEROL Inhaler (OR & NICU) 2 puff IH QID PRN #1 inhalation 03/30/18 Unknown Rx [ProAir HFA Inhaler] Benzonatate [Tessalon Perles] 100 mg PO Q8HR #10 capsule 03/30/18 Unknown Rx predniSONE [Deltasone] 20 mg PO QDAY #5 tab 03/30/18 Unknown Rx traMADol [Ultram] 50 mg PO Q6HR PRN #10 tablet 03/30/18 Unknown Rx Minor Respiratory Exam - Exam General: Vital signs noted. No distress. Alert and acting appropriately. HEENT: Yes Pharyngeal Erythema (mild), Yes Moist Mucous Membranes, No Pharyngeal Exudates, No Rhinorrhea, No Conjuctival Injection, No Frontal Tenderness, No Maxillary Tenderness Ear: Neither TM Bulge, Neither TM Erythema, Neither EAC Pain, Neither EAC Discharge Neck: Yes Supple, No Adenopathy Lungs: Yes Good Air Exchange, Yes Cough, No Wheezes, No Ronchi, No Stridor, No Labored Respirations, No Retractions, No Use of Accessory Muscles, No Other Abnormal Lung Sounds Heart: Yes Regular, No Murmur Abdomen: Yes Normal Bowel Sounds, No Tenderness, No Peritoneal Signs Skin: No Rash, No Edema Neurologic: Alert and oriented, no deficits. Musculoskeletal: Unremarkable. ED Course Vital Signs 03/30/18 13:42 Temperature 98.6 F Pulse Rate 97 H Respiratory 20 Rate Blood Pressure 147/95 O2 Sat by Pulse 99 Oximetry ED Medical Decision Making - Medical Decision Making Patient is a smoker. Patient's symptoms been going on greater than a week. Patient started on antibiotics as well as meds for symptomatic relief Critical care attestation.: If time is entered above; I have spent that time in minutes in the direct care of this critically ill patient, excluding procedure time. ED Disposition Clinical Impression: Acute bronchitis Qualifiers: Bronchitis organism: unspecified organism Qualified Code(s): J20.9 - Acute bronchitis, unspecified Disposition: - TO HOME OR SELFCARE Is pt being admited?: No Does the pt Need Aspirin: No Condition: Stable Instructions: Acute Bronchitis (ED) Referrals: [facility] [Outside] - 3-5 Days Time of Disposition: 14:09
== END 2018-03-30 14:38 | disposition home or self-care (01) ==
LOC: ED 13:32
CPT/HCPCS: 99282

== ENCOUNTER 2020-06-24 09:45 | Emergency (ER) | payer OTHER ==
[2020-06-24 09:58] VITALS: BP 137/92
--- NOTE | 2020-06-24 10:29 | Emergency Department Report ---
ED General Adult HPI - General Chief complaint: Pain General Stated complaint: BODY PAIN/SINUS Time Seen by Provider: 06/24/20 10:12 Source: patient Mode of arrival: Ambulatory Limitations: No Limitations - History of Present Illness Initial comments: Patient is a 45-year-old female presents emergency room with complaints of sinus congestion and allergies that began 2 days ago. She has associated runny nose, postnasal drip, sinus pressure. She denies any fever, nausea, vomiting, diarrhea, chest pain, shortness of breath, abdominal pain. She denies any sick contacts or recent travel. She states that she has been on Zyrtec for years but believes it is no longer helping. Patient states that she also presents for generalized joint pain, she states that she has pain in her knee, shoulder, back. She denies any fall or injury. She is amatory without difficulty. She denies any numbness or weakness. She is moving all joints without difficulty. She denies any redness, swelling, increased warmth. She has a past medical history of hypertension and asthma/bronchitis. She states that she also needs a refill of her albuterol inhaler. Patient states that she has an allergy to hydrocodone, oxycodone. Severity scale (0 -10): 10 - Related Data Home Medications Medication Instructions Recorded Confirmed Last Taken Cyclobenzaprine [Flexeril] 10 mg PO TID PRN 07/05/17 07/05/17 07/11/17 Docusate Sodium [Colace] 100 mg PO BID PRN 07/05/17 07/05/17 07/11/17 Previous Rx's Medication Instructions Recorded Last Taken Type Albuterol Sulfate [Ventolin HFA] 2 puff IH Q4H PRN #1 hfa.aer.ad 06/26/16 07/08/17 Rx Fluticasone [Flonase] 1 spray NS QDAY #1 bottle 06/26/16 07/11/17 Rx Ferrous Sulfate [Feosol 325 MG tab] 325 mg PO TID #90 tablet 02/07/17 07/11/17 Rx Gabapentin 300 mg PO BID #60 capsule 07/15/17 Unknown Rx Ketorolac [Toradol] 10 mg PO Q6H PRN #30 tablet 07/15/17 Unknown Rx NIFEdipine XL [Procardia Xl] 30 mg PO QDAY #30 tablet 07/15/17 Unknown Rx Benzonatate [Tessalon Perles] 100 mg PO Q8HR #10 capsule 03/30/18 Unknown Rx predniSONE [Deltasone] 20 mg PO QDAY #5 tab 03/30/18 Unknown Rx traMADoL [Ultram] 50 mg PO Q6HR PRN #10 tablet 03/30/18 Unknown Rx Albuterol Mdi (or & Nicu Only) 2 puff IH QID PRN #1 inhalation 06/24/20 Unknown Rx [ProAir HFA Inhaler] Diclofenac Sodium [Voltaren 1 applicatio TP BID #20 gel..gram. 06/24/20 Unknown Rx Arthritis Pain] Fexofenadine HCl [Lina Allergy] 60 mg PO DAILY #30 tablet 06/24/20 Unknown Rx Fluticasone [Flonase] 1 spray NS QDAY #1 bottle 06/24/20 Unknown Rx Meloxicam [Mobic] 7.5 mg PO QDAY #14 tablet 06/24/20 Unknown Rx Allergies Allergy/AdvReac Type Severity Reaction Status Date / Time hydrocodone [From Volin] Allergy Rash, hot Verified 03/30/18 13:46 and itchy oxycodone [From Percocet] Allergy rash, felt Verified 03/30/18 13:46 hot and itchy ED Review of Systems ROS: Stated complaint: BODY PAIN/SINUS Other details as noted in HPI Comment: All other systems reviewed and negative ED Past Medical Hx - Past Medical History Hx Hypertension: Yes Hx Congestive Heart Failure: No Hx Diabetes: No Hx Sickle Cell Disease: Yes (Trait only) Hx Headaches / Migraines: Yes (past hx migraines) Hx Asthma: Yes (last used inhaler 03/2017) Hx COPD: No Hx HIV: No Additional medical history: Anemia. FIBROID TUMOR - Surgical History Past Surgical History?: Yes Hx Cholecystectomy: Yes Additional Surgical History: fibroid tumors, hysterectomy - Social History Smoking Status: Current Every Day Smoker Substance Use Type: Alcohol - Medications Home Medications: Home Medications Medication Instructions Recorded Confirmed Last Taken Type Albuterol Sulfate [Ventolin HFA] 2 puff IH Q4H PRN #1 hfa.aer.ad 06/26/16 07/12/17 07/08/17 Rx Fluticasone [Flonase] 1 spray NS QDAY #1 bottle 06/26/16 07/05/17 07/11/17 Rx Ferrous Sulfate [Feosol 325 MG tab] 325 mg PO TID #90 tablet 02/07/17 07/05/17 07/11/17 Rx Cyclobenzaprine [Flexeril] 10 mg PO TID PRN 07/05/17 07/05/17 07/11/17 History Docusate Sodium [Colace] 100 mg PO BID PRN 07/05/17 07/05/17 07/11/17 History Gabapentin 300 mg PO BID #60 capsule 07/15/17 Unknown Rx Ketorolac [Toradol] 10 mg PO Q6H PRN #30 tablet 07/15/17 Unknown Rx NIFEdipine XL [Procardia Xl] 30 mg PO QDAY #30 tablet 07/15/17 Unknown Rx Benzonatate [Tessalon Perles] 100 mg PO Q8HR #10 capsule 03/30/18 Unknown Rx predniSONE [Deltasone] 20 mg PO QDAY #5 tab 03/30/18 Unknown Rx traMADoL [Ultram] 50 mg PO Q6HR PRN #10 tablet 03/30/18 Unknown Rx Albuterol Mdi (or & Nicu Only) 2 puff IH QID PRN #1 inhalation 06/24/20 Unknown Rx [ProAir HFA Inhaler] Diclofenac Sodium [Voltaren 1 applicatio TP BID #20 gel..gram. 06/24/20 Unknown Rx Arthritis Pain] Fexofenadine HCl [Lina Allergy] 60 mg PO DAILY #30 tablet 06/24/20 Unknown Rx Fluticasone [Flonase] 1 spray NS QDAY #1 bottle 06/24/20 Unknown Rx Meloxicam [Mobic] 7.5 mg PO QDAY #14 tablet 06/24/20 Unknown Rx ED Physical Exam - General Limitations: No Limitations General appearance: alert, in no apparent distress - Head Head exam: Present: atraumatic, normocephalic - Eye Eye exam: Present: normal appearance - ENT ENT exam: Present: normal orophraynx, mucous membranes moist, TM's normal bilaterally, normal external ear exam, other (clear mucus drainage bilaterally) - Neck Neck exam: Present: normal inspection, full ROM. Absent: tenderness - Respiratory Respiratory exam: Present: normal lung sounds bilaterally. Absent: respiratory distress, wheezes, rales, rhonchi, stridor, chest wall tenderness, accessory muscle use, decreased breath sounds, prolonged expiratory - Cardiovascular Cardiovascular Exam: Present: regular rate, normal rhythm, normal heart sounds. Absent: systolic murmur, diastolic murmur, rubs, gallop - Extremities Exam Extremities exam: Present: normal inspection, full ROM, normal capillary refill. Absent: tenderness, pedal edema, joint swelling, calf tenderness - Back Exam Back exam: Present: normal inspection, full ROM. Absent: paraspinal tenderness, vertebral tenderness - Neurological Exam Neurological exam: Present: alert, oriented X3, CN II-XII intact, normal gait. Absent: motor sensory deficit - Psychiatric Psychiatric exam: Present: normal affect, normal mood - Skin Skin exam: Present: warm, dry, intact ED Course Vital Signs 06/24/20 09:55 Temperature 98.6 F Pulse Rate 89 Respiratory 17 Rate Blood Pressure 137/92 [Right] O2 Sat by Pulse 98 Oximetry ED Medical Decision Making - Medical Decision Making Patient is a 45-year-old female presents emergency room with complaints of sinus congestion and allergies that began 2 days ago. She has associated runny nose, postnasal drip, sinus pressure. She denies any fever, nausea, vomiting, diarrhea, chest pain, shortness of breath, abdominal pain. She denies any sick contacts or recent travel. She states that she has been on Zyrtec for years but believes it is no longer helping. Patient states that she also presents for generalized joint pain, she states that she has pain in her knee, shoulder, back. She denies any fall or injury. She is amatory without difficulty. She denies any numbness or weakness. She is moving all joints without difficulty. She denies any redness, swelling, increased warmth. She has a past medical history of hypertension and asthma/bronchitis. She states that she also needs a refill of her albuterol inhaler. Patient states that she has an allergy to hydrocodone, oxycodone. Vitals are normal. On exam: clear mucus drainage bilaterally, eye sounds are clear bilaterally, no wheezing, no rales, no rhonchi. Symptoms appear most consistent with allergies/allergic rhinitis. No signs of bacterial sinus infection at this time. She has only had symptoms for 2 days. Patient is also presenting with generalized joint pain without any signs of infection, gout, no trauma. Patient given prescription for medications. Patient is also requesting a refill of her albuterol inhaler. Patient be referred to primary care doctor. Advised patient Please use medication as prescribed. Please follow-up with a primary care doctor. Please follow-up with orthopedic doctor. Return to emergency room for any worsening symptoms. Critical care attestation.: If time is entered above; I have spent that time in minutes in the direct care of this critically ill patient, excluding procedure time. ED Disposition Clinical Impression: Sinus pressure, Generalized joint pain Allergies Qualifiers: Encounter type: initial encounter Qualified Code(s): T78.40XA - Allergy, unspecified, initial encounter Disposition: TO HOME OR SELFCARE Is pt being admited?: No Does the pt Need Aspirin: No Condition: Stable Instructions: Allergies, Adult, [id number], Joint Pain Additional Instructions: Please use medication as prescribed. Please follow-up with a primary care doctor. Please follow-up with orthopedic doctor. Return to emergency room for any worsening symptoms. Prescriptions: Fexofenadine HCl [Lina Allergy] 60 mg PO DAILY #30 tablet Fluticasone [Flonase] 1 spray NS QDAY #1 bottle Meloxicam [Mobic] 7.5 mg PO QDAY #14 tablet Albuterol Mdi (or & Nicu Only) [ProAir HFA Inhaler] 2 puff IH QID PRN #1 inhalation PRN Reason: Shortness Of Breath Diclofenac Sodium [Voltaren Arthritis Pain] 1 applicatio TP BID #20 gel..gram. Referrals: PAUL CONKLIN MD [Staff Physician] - 3-5 Days [facility], [LAB/CONTRACT] - 3-5 Days [facility] [Outside] - 3-5 Days ROSITA AVALOS MD [Staff Physician] - 3-5 Days [place] DELIA LOTT MD [Staff Physician] - 3-5 Days TATIANNA RIVAS MD [Staff Physician] - 3-5 Days [facility] [Provider Group] - 3-5 Days Forms: Work/School Release Form(ED) Time of Disposition: 10:23 Print Language: CROATIAN
== END 2020-06-24 11:28 | disposition home or self-care (01) ==
LOC: ED 09:45
DX: T78.40XA Allergy, unspecified, initial encounter (principal); L98.8 Other specified disorders of the skin and subcutaneous tissue; M79.10 Myalgia, unspecified site; I10 Essential (primary) hypertension; G43.909 Migraine, unspecified, not intractable, without status migrainosus; G40.909 Epilepsy, unspecified, not intractable, without status epilepticus; Z79.899 Other long term (current) drug therapy; Z88.8 Allergy status to other drugs, medicaments and biological substances; F17.200 Nicotine dependence, unspecified, uncomplicated; Z90.49 Acquired absence of other specified parts of digestive tract
CPT/HCPCS: 99281

== ENCOUNTER 2020-08-26 16:59 | Emergency (ER) | payer OTHER ==
[2020-08-26] MEDS ORDERED: SODIUM CHLORIDE 0.9% 1000 ML 1,000 ML IV ONE (19:59)
[2020-08-26] MEDS ORDERED: ONDANSETRON 4 MG/2 ML INJ IV ONE (19:59)
[2020-08-26 20:16] LABS: Basophils % (Auto) 0.4 % (0.0-1.8); Hemoglobin 12.8 gm/dl (10.1-14.3); Lymphocytes # (Auto) 1.5 K/mm3 (1.2-5.4); Lymphocytes % (Auto) 34.8 % (13.4-35.0); Mean Corpuscular HGB Conc 34 % (30-34); Mean Corpuscular Volume 90 fl (79-97); Monocytes # (Auto) 0.3 K/mm3 (0.0-0.8); Monocytes % (Auto) 7.2 % (0.0-7.3); Platelet Count 182 K/mm3 (140-440); Red Blood Count 4.21 M/mm3 (3.65-5.03); Red Cell Distribution Width 14.7 % (13.2-15.2)
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
[2020-08-26 20:42] LABS: Alanine Aminotransferase 25 units/L (7-56); Albumin 4.2 g/dL (3.9-5); Blood Urea Nitrogen 5 mg/dL (7-17); Hemolysis Index 16
[2020-08-26 21:07] LABS: BUN/Creatinine Ratio 10
[2020-08-26 21:49] LABS: Bilirubin,Urine NEG (Negative); Blood,Urine NEG (Negative); Color,Urine Yellow (Yellow); Mucus,Urine FEW /HPF; Protein,Urine <15 mg/dL mg/dL (Negative); Urobilinogen,Urine < 2.0 mg/dL (<2.0)
--- NOTE | 2020-08-26 22:58 | XRay Report ---
ABDOMEN 1 VIEW, 08/26/2020 INDICATION / CLINICAL INFORMATION: Lower abdominal pain COMPARISON: CT of the abdomen and pelvis, 02/05/2017 FINDINGS: TUBES / LINES: None. BOWEL GAS PATTERN: Bowel gas pattern appears nonobstructive. ADDITIONAL FINDINGS: Evaluation of bony structures demonstrates no acute bony abnormality. Surgical c lips overlie the right upper quadrant. IMPRESSION: 1. No radiographic evidence of acute abnormality. Signer Name: Alma Ernst MD Signed: 08/26/2020 10:53 PM Workstation Name: [id number]
[2020-08-27 05:01] VITALS: BP 148/99
== END 2020-08-26 23:15 | disposition home or self-care (01) ==
LOC: ED 16:59
DX: R11.2 Nausea with vomiting, unspecified (principal); R19.7 Diarrhea, unspecified; K59.00 Constipation, unspecified; I10 Essential (primary) hypertension; J45.909 Unspecified asthma, uncomplicated; F17.200 Nicotine dependence, unspecified, uncomplicated; G43.909 Migraine, unspecified, not intractable, without status migrainosus; G89.29 Other chronic pain; Z86.2 Personal history of diseases of the blood and blood-forming organs and certain disorders involving the immune mechanism; Z90.710 Acquired absence of both cervix and uterus; Z72.89 Other problems related to lifestyle; Z88.5 Allergy status to narcotic agent; Z79.899 Other long term (current) drug therapy
CPT/HCPCS: 36415; 74018; 80053; 81001; 83690; 85025; 96361; 96374; 99284; J2405; J7030

== ENCOUNTER 2020-10-31 09:53 | Emergency (ER) | payer OTHER ==
[2020-10-31 10:01] VITALS: BP 133/92
--- NOTE | 2020-10-31 14:20 | Emergency Department Report ---
ED Extremity Problem HPI - General Chief complaint: Pain General Stated complaint: EXTREMITY PAIN Time Seen by Provider: 10/31/20 12:29 Source: patient Mode of arrival: Ambulatory Limitations: No Limitations - History of Present Illness Initial comments: This is a pleasant 45-year-old female who presents the emergency department the chief complaint of left shoulder pain that has been ongoing for the past month, lower back pain has been ongoing for the past many months and right knee pain that has been going for the last many months. She denies any injuries. She denies any associated fever, chills, night sweats, headache, dizziness, blurry vision, nausea, vomiting, diarrhea, chest pain, shortness of breath, weakness or any other associated symptoms. Her pain is aggravated by movement and lifting of the left arm and states she can only lift it to approximately 40 degrees. - Related Data Home Medications Medication Instructions Recorded Confirmed Last Taken Cyclobenzaprine [Flexeril] 10 mg PO TID PRN 07/05/17 07/05/17 07/11/17 Docusate Sodium [Colace] 100 mg PO BID PRN 07/05/17 07/05/17 07/11/17 Previous Rx's Medication Instructions Recorded Last Taken Type Albuterol Sulfate [Ventolin HFA] 2 puff IH Q4H PRN #1 hfa.aer.ad 06/26/16 07/08/17 Rx Fluticasone [Flonase] 1 spray NS QDAY #1 bottle 06/26/16 07/11/17 Rx Ferrous Sulfate [Feosol 325 MG tab] 325 mg PO TID #90 tablet 02/07/17 07/11/17 Rx Gabapentin 300 mg PO BID #60 capsule 07/15/17 Unknown Rx Ketorolac [Toradol] 10 mg PO Q6H PRN #30 tablet 07/15/17 Unknown Rx NIFEdipine XL [Procardia Xl] 30 mg PO QDAY #30 tablet 07/15/17 Unknown Rx Benzonatate [Tessalon Perles] 100 mg PO Q8HR #10 capsule 03/30/18 Unknown Rx predniSONE [Deltasone] 20 mg PO QDAY #5 tab 03/30/18 Unknown Rx traMADoL [Ultram] 50 mg PO Q6HR PRN #10 tablet 03/30/18 Unknown Rx Albuterol Mdi (or & Nicu Only) 2 puff IH QID PRN #1 inhalation 06/24/20 Unknown Rx [ProAir HFA Inhaler] Diclofenac Sodium [Voltaren 1 applicatio TP BID #20 gel..gram. 06/24/20 Unknown Rx Arthritis Pain] Fexofenadine HCl [Lina Allergy] 60 mg PO DAILY #30 tablet 06/24/20 Unknown Rx Fluticasone [Flonase] 1 spray NS QDAY #1 bottle 06/24/20 Unknown Rx Meloxicam [Mobic] 7.5 mg PO QDAY #14 tablet 06/24/20 Unknown Rx Dicyclomine [Bentyl] 10 mg PO QID #12 capsule 08/26/20 Unknown Rx Ondansetron [Zofran Odt] 4 mg PO Q8HR #12 tab.rapdis 08/26/20 Unknown Rx polyethylene glycoL 3350 [Miralax 17 gm PO BID PRN #14 packet 08/26/20 Unknown Rx 3350] Naproxen 500 mg PO BID #20 tablet 10/31/20 Unknown Rx methOCARBAMOL [Robaxin TAB] 500 mg PO Q6H PRN #20 tablet 10/31/20 Unknown Rx Allergies Allergy/AdvReac Type Severity Reaction Status Date / Time hydrocodone [From [place]] Allergy Rash, hot Verified 03/30/18 13:46 and itchy oxycodone [From Percocet] Allergy rash, felt Verified 03/30/18 13:46 hot and itchy ED Review of Systems ROS: Stated complaint: EXTREMITY PAIN Other details as noted in HPI Comment: All other systems reviewed and negative Constitutional: denies: chills, fever Eyes: denies: eye pain, eye discharge, vision change ENT: denies: ear pain, throat pain Respiratory: denies: cough, shortness of breath, wheezing Cardiovascular: denies: chest pain, palpitations Endocrine: no symptoms reported Gastrointestinal: denies: abdominal pain, nausea, diarrhea Genitourinary: denies: urgency, dysuria, discharge Musculoskeletal: as per HPI, back pain, arthralgia. denies: joint swelling Skin: denies: rash, lesions Neurological: denies: headache, weakness, paresthesias Psychiatric: denies: anxiety, depression Hematological/Lymphatic: denies: easy bleeding, easy bruising ED Past Medical Hx - Past Medical History Previous Medical History?: Yes Hx Hypertension: Yes Hx Congestive Heart Failure: No Hx Diabetes: No Hx Sickle Cell Disease: Yes (Trait only) Hx Headaches / Migraines: Yes (past hx migraines) Hx Asthma: Yes (last used inhaler 03/2017) Hx COPD: No Hx HIV: No Additional medical history: Anemia. FIBROID TUMOR - Surgical History Past Surgical History?: Yes Hx Cholecystectomy: Yes Additional Surgical History: fibroid tumors, hysterectomy - Social History Smoking Status: Current Every Day Smoker Substance Use Type: Alcohol - Medications Home Medications: Home Medications Medication Instructions Recorded Confirmed Last Taken Type Albuterol Sulfate [Ventolin HFA] 2 puff IH Q4H PRN #1 hfa.aer.ad 06/26/16 07/12/17 07/08/17 Rx Fluticasone [Flonase] 1 spray NS QDAY #1 bottle 06/26/16 07/05/17 07/11/17 Rx Ferrous Sulfate [Feosol 325 MG tab] 325 mg PO TID #90 tablet 02/07/17 07/05/17 07/11/17 Rx Cyclobenzaprine [Flexeril] 10 mg PO TID PRN 07/05/17 07/05/17 07/11/17 History Docusate Sodium [Colace] 100 mg PO BID PRN 07/05/17 07/05/17 07/11/17 History Gabapentin 300 mg PO BID #60 capsule 07/15/17 Unknown Rx Ketorolac [Toradol] 10 mg PO Q6H PRN #30 tablet 07/15/17 Unknown Rx NIFEdipine XL [Procardia Xl] 30 mg PO QDAY #30 tablet 07/15/17 Unknown Rx Benzonatate [Tessalon Perles] 100 mg PO Q8HR #10 capsule 03/30/18 Unknown Rx predniSONE [Deltasone] 20 mg PO QDAY #5 tab 03/30/18 Unknown Rx traMADoL [Ultram] 50 mg PO Q6HR PRN #10 tablet 03/30/18 Unknown Rx Albuterol Mdi (or & Nicu Only) 2 puff IH QID PRN #1 inhalation 06/24/20 Unknown Rx [ProAir HFA Inhaler] Diclofenac Sodium [Voltaren 1 applicatio TP BID #20 gel..gram. 06/24/20 Unknown Rx Arthritis Pain] Fexofenadine HCl [Lina Allergy] 60 mg PO DAILY #30 tablet 06/24/20 Unknown Rx Fluticasone [Flonase] 1 spray NS QDAY #1 bottle 06/24/20 Unknown Rx Meloxicam [Mobic] 7.5 mg PO QDAY #14 tablet 06/24/20 Unknown Rx Dicyclomine [Bentyl] 10 mg PO QID #12 capsule 08/26/20 Unknown Rx Ondansetron [Zofran Odt] 4 mg PO Q8HR #12 tab.rapdis 08/26/20 Unknown Rx polyethylene glycoL 3350 [Miralax 17 gm PO BID PRN #14 packet 08/26/20 Unknown Rx 3350] Naproxen 500 mg PO BID #20 tablet 10/31/20 Unknown Rx methOCARBAMOL [Robaxin TAB] 500 mg PO Q6H PRN #20 tablet 10/31/20 Unknown Rx ED Physical Exam - General Limitations: No Limitations General appearance: alert, in no apparent distress - Head Head exam: Present: atraumatic, normocephalic - Eye Eye exam: Present: normal appearance, PERRL, EOMI Pupils: Present: normal accommodation - ENT ENT exam: Present: normal exam, normal orophraynx, mucous membranes moist - Neck Neck exam: Present: normal inspection, full ROM. Absent: tenderness, meningismus - Respiratory Respiratory exam: Present: normal lung sounds bilaterally. Absent: respiratory distress, wheezes, rales, rhonchi, stridor - Cardiovascular Cardiovascular Exam: Present: regular rate, normal rhythm, normal heart sounds. Absent: systolic murmur, diastolic murmur, rubs, gallop - GI/Abdominal GI/Abdominal exam: Present: soft, normal bowel sounds. Absent: distended, tenderness, guarding, rebound, rigid - Extremities Exam Extremities exam: Present: normal inspection, tenderness (Tenderness palpation of the anterior and lateral left shoulder. Pain with range of motion above 30 degrees of abduction. Pain with Umaña sign. Pain with Neer sign. Pain with empty can test. Normal equal radial pulses bilaterally.). Absent: calf tenderness - Back Exam Back exam: Present: normal inspection, full ROM. Absent: tenderness, CVA tenderness (R), CVA tenderness (L) - Neurological Exam Neurological exam: Present: alert, oriented X3, CN II-XII intact, normal gait - Psychiatric Psychiatric exam: Present: normal affect, normal mood - Skin Skin exam: Present: warm, dry, intact, normal color. Absent: rash ED Course Vital Signs 10/31/20 10:00 Temperature 98.3 F Pulse Rate 99 H Respiratory 18 Rate Blood Pressure 133/92 O2 Sat by Pulse 98 Oximetry ED Medical Decision Making - Medical Decision Making Patient nontoxic no acute distress. Pain has been ongoing for the past many mon ths. I will treat the patient with anti-inflammatories and recommended orthopedic follow-up. Return to the ER with any change or worsening symptoms. She verbalized understanding the diagnosis, treatment plan and follow-up instructions and all her questions were answered. - Differential Diagnosis strain, rotator cuff tear/impingement, sprain Critical care attestation.: If time is entered above; I have spent that time in minutes in the direct care of this critically ill patient, excluding procedure time. ED Disposition Clinical Impression: Chronic pain of right knee Left shoulder pain Qualifiers: Chronicity: acute Qualified Code(s): M25.512 - Pain in left shoulder Acute low back pain Qualifiers: Back pain laterality: unspecified Sciatica presence: without sciatica Qualified Code(s): M54.5 - Low back pain Disposition: 01 HOME / SELF CARE / HOMELESS Is pt being admited?: No Does the pt Need Aspirin: No Condition: Stable Instructions: Acute Knee Pain, Adult Prescriptions: Naproxen 500 mg PO BID #20 tablet methOCARBAMOL [Robaxin TAB] 500 mg PO Q6H PRN #20 tablet PRN Reason: Spasms Referrals: PRIMARY CARE, [Primary Care Provider] - 3-5 Days Time of Disposition: 14:21
== END 2020-10-31 15:24 | disposition home or self-care (01) ==
LOC: ED 09:53
DX: G89.29 Other chronic pain (principal); M25.561 Pain in right knee; M25.511 Pain in right shoulder; M25.512 Pain in left shoulder; M54.5 Low back pain; I10 Essential (primary) hypertension; G43.909 Migraine, unspecified, not intractable, without status migrainosus; Z90.49 Acquired absence of other specified parts of digestive tract; Z98.890 Other specified postprocedural states; Z79.899 Other long term (current) drug therapy; F17.200 Nicotine dependence, unspecified, uncomplicated; Z88.5 Allergy status to narcotic agent; Z88.8 Allergy status to other drugs, medicaments and biological substances
CPT/HCPCS: 99281